=== PATIENT | male | born 1955 | race Caucasian/White ===

== ENCOUNTER 2018-07-17 20:02 | Observation (INO) | payer OTHER ==
--- NOTE | 2018-07-17 20:14 | PDOC ---
Rapid Medical Evaluation Time Seen by Provider: 07/17/18 20:10 Medical Evaluation: 07/17/18 20:11 I have performed a brief in-person evaluation of this patient. The patient presents with a chief complaint of: intermittent chest pain X 1 month, h/o liver tx, sent by PCP to be admitted to Dr. Araiza Pertinent physical exam findings: I have ordered the following:ekg, labs The patient will proceed to the ED for further evaluation. 07/17/18 20:13 Discharge Disposition - Diagnosis Chest pain Qualifiers: Chest pain type: unspecified Qualified Code(s): R07.9 - Chest pain, unspecified - Referrals Referrals: Star Guaman MD [Primary Care Provider] - - Patient Instructions - Post Discharge Activity
[2018-07-17 20:17] VITALS: BMI 29.7
[2018-07-17 22:25] LABS: HEMATOCRIT 39.6 % (35.4-49); HEMOGLOBIN 13.5 GM/dL (11.7-16.9); MCH 30.8 pg (25.7-33.7); MEAN CELL VOLUME 90.4 fl (80-96); MEAN PLT VOLUME 9.7 fl (7.5-11.1); PLATELET COUNT 132 K/MM3 (134-434); RBC 4.38 M/mm3 (4.00-5.60); RDW 13.6 % (11.9-15.9); WHITE BLOOD COUNT 4.8 K/mm3 (4.0-10.0)
--- NOTE | 2018-07-17 22:25 | PDOC ---
History of Present Illness - General History Source: Patient Exam Limitations: No Limitations <Azucena Ledezma - Last Filed: 07/17/18 22:39> <Rossana Johnson - Last Filed: 07/17/18 23:40> - General Chief Complaint: Chest Pain Stated Complaint: CHEST PAIN Time Seen by Provider: 07/17/18 20:10 - History of Present Illness Initial Comments: 07/17/18 22:40 The patient is a 62 year old male, with a significant past medical history of Hep C, liver transplant in 2011 s/p cirrhosis from ETOH abuse, hypertension, who presents to the emergency department sent by Dr. Guaman to further evaluate a one month complaint of intermittent chest pain that radiates to bilateral upper extremities. He states the pain is exacerbated with exertion and while smoking marijuana. He denies alleviating factors for pain. He denies pain at this time. He states he gets blood work every 3 months since his transplant [address] Dixon. He states he gets annual check-ups with his PCP Dr. Guaman. The patient denies shortness of breath, headache and dizziness. The patient denies fever, chills, nausea, vomit, diarrhea and constipation. The patient denies dysuria, frequency, urgency and hematuria. Allergies: NKDA Past surgical history: liver transplant, abdominal hernia repair (2011) Social history: Denies ETOH consumption. Daily marijuana smoker PCP - Dr. Guaman (Azucena Ledezma) Past History <Azucena Ledezma - Last Filed: 07/17/18 22:39> - Past Medical History COPD: No DVT: No HTN: Yes - Immunization History Immunization Up to Date: Yes - Suicide/Smoking/Psychosocial Hx Smoking History: Never smoked Have you smoked in the past 12 months: No Information on smoking cessation initiated: No Hx Alcohol Use: No Drug/Substance Use Hx: No Substance Use Type: Marijuana <Rossana Johnson - Last Filed: 07/17/18 23:40> - Past Medical History Allergies/Adverse Reactions: Allergies Allergy/AdvReac Type Severity Reaction Status Date / Time No Known Allergies Allergy Verified 07/17/18 20:12 Home Medications: Ambulatory Orders NK [No Known Home Medication] 07/17/18 Review of Systems - Review of Systems Able to Perform ROS?: Yes <Azucena Ledezma - Last Filed: 07/17/18 22:39> <AlexDcmaxim Echavarria - Last Filed: 07/17/18 23:40> - Review of Systems Comments:: 07/17/18 22:41 CONSTITUTIONAL: Absent: fever, no chills, no fatigue EYES: Absent: visual changes ENT: Absent: ear pain, no sore throat CARDIOVASCULAR: (+) chest pain radiating to bilateral UE, Absent:no palpitations RESPIRATORY: Absent: cough, no SOB GI: Absent: abdominal pain, no nausea, no vomiting, no constipation, no diarrhea GENITOURINARY: Absent: dysuria, no frequency, no hematuria MUSCULOSKELETAL: Absent: back pain, no arthralgia, no myalgia SKIN: Absent: rash NEURO: Absent: headache (Azucena Ledezma) *Physical Exam <MichellekervinericAzucena - Last Filed: 07/17/18 22:39> <Rossana Johnson - Last Filed: 07/17/18 23:40> - Vital Signs Last Vital Signs Temp Pulse Resp BP Pulse Ox 98.4 F 61 16 132/76 99 07/17/18 20:14 07/17/18 20:14 07/17/18 20:14 07/17/18 20:14 07/17/18 20:14 - Physical Exam Comments: 07/17/18 22:42 GENERAL: Well-appearing, well-nourished. No apparent distress. HEENT: Normocephalic, atraumatic. PERRL, EOM intact. CARDIOVASCULAR: Normal S1, S2. Regular rate and rhythm. PULMONARY: Clear to auscultation bilaterally. ABDOMEN: Soft, non-distended, non-tender. EXTREMITIES: Normal ROM in all four extremities. No gross deformities. SKIN: Warm, dry. No rash NEUROLOGICAL: No focal neurological deficits. (Azucena Ledezma) Heart Score/ECG Review - History History: Moderately suspicious - Electrocardiogram EKG: Non specific repolarization disturbance - Age Age: >/= 65 - Risk Factors Risk Factors Heart Score: Yes Hx Hypercholesterolemia, Yes Hx Hypertension Based on the list above the patient has:: 1-2 risk factors - Troponin Troponin: </= normal limit - Score Heart Score - Total: 5 - P and VT Delta Wave(s) Present: No WPW: No - QRS Widened: RBBB - ECG Impressions Ischemic Changes: No <Rossana Johnson - Last Filed: 07/17/18 23:40> ED Treatment Course - LABORATORY CBC & Chemistry Diagram: 07/17/18 22:00 07/17/18 22:00 <Azucena Ledezma - Last Filed: 07/17/18 22:39> - LABORATORY CBC & Chemistry Diagram: 07/17/18 22:00 07/17/18 22:00 <Rossana Johnson - Last Filed: 07/17/18 23:40> - ADDITIONAL ORDERS Additional order review: Laboratory Results 07/17/18 07/17/18 07/17/18 22:00 22:00 22:00 PT with INR 12.30 INR 1.09 Sodium 141 Potassium 4.2 Chloride 106 Carbon Dioxide 26 Anion Gap 9 BUN 16 Creatinine 1.0 Creat Clearance w eGFR > 60 Random Glucose 106 Calcium 8.8 Total Bilirubin 0.5 AST 22 ALT 21 Alkaline Phosphatase 90 Creatine Kinase 299 Creatine Kinase Index 0.5 CK-MB (CK-2) 1.78 Troponin I < 0.02 Total Protein 7.4 Albumin 4.0 07/17/18 22:00 RBC 4.38 MCV 90.4 MCHC 34.0 RDW 13.6 MPV 9.7 - RADIOLOGY Radiology Studies Ordered: Category Date Time Status CHEST PA & LAT [RAD] Stat Radiology 07/17/18 22:35 Taken *DC/Admit/Observation/Transfer <Azucena Ledezma - Last Filed: 07/17/18 22:39> - Discharge Dispostion Decision to Admit order: Yes <Rossana Johnson - Last Filed: 07/17/18 23:40> Diagnosis at time of Disposition: Liver transplant recipient Chest pain Qualifiers: Chest pain type: unspecified Qualified Code(s): R07.9 - Chest pain, unspecified - Referrals Referrals: Star Guaman MD [Primary Care Provider] - - Patient Instructions - Post Discharge Activity - Attestations Scribe Attestion: 07/17/18 22:42 Documentation prepared by Azucena Ledezma, acting as medical parasitologist for Rossana Johnson MD (Azucena Ledezma)
[2018-07-17 22:26] LABS: INR 1.09 (0.83-1.09); PROTHROMBIN TIME (PATIENT) 12.3 SEC (9.7-13.0)
[2018-07-17 22:42] LABS: ALK PHOS 90 U/L (45-117); ANION GAP 9 MMOL/L (8-16); BILIRUBIN,TOTAL 0.5 mg/dL (0.2-1.0); BLOOD UREA NITROGEN 16 mg/dL (7-18); CALCIUM 8.8 mg/dL (8.5-10.1); CHLORIDE 106 mmol/L (98-107); CO2 26 mmol/L (21-32); GLUCOSE,RANDOM 106 mg/dL (74-106); SGPT/ALT 21 U/L (12-78); SODIUM 141 mmol/L (136-145); TOT PROT 7.4 g/dl (6.4-8.2)
[2018-07-17 22:44] LABS: POTASSIUM 4.2 mmol/L (3.5-5.1); SGOT/AST 22 U/L (15-37)
[2018-07-17] MEDS ORDERED: ASPIRIN 81 MG CHEWABLE TABLETS PO ONE (23:40)
--- NOTE | 2018-07-17 23:49 | HP ---
CHIEF COMPLAINT: Chest Pain PCP: Dr. Guaman HISTORY OF PRESENT ILLNESS: This is a 62 y/o man with a significant past medical history of Hep C, Liver Transplant in 2011 s/p Cirrhosis from ETOH Abuse, Hypertension. Who presents to the ED sent in from his PCP's office for evaluation of intermittent chest pain and dyspnea on exertion x one month. Patient reports the pain is exacerbated on exertion and when smoking Marijuana. He states he gets blood work every 3 months since his transplant [address] Dixon. He states he gets annual check-ups with his PCP Dr. Guaman. The patient denies shortness of breath, headache and dizziness. The patient denies fever, chills, nausea, vomit, diarrhea and constipation. The patient denies dysuria, frequency, urgency and hematuria. ER course was notable for: (1) Troponin I < 0.02 (2) EKG- SB 59bpm, RBBB (3) Recent Travel: None PAST MEDICAL HISTORY: See HPI PAST SURGICAL HISTORY: liver transplant, abdominal hernia repair (2011) Social History: Smoking: Denies Tobacco use Alcohol:Denies ETOH consumption Drugs: Daily marijuana smoker Family History: Allergies No Known Allergies Allergy (Verified 07/17/18 20:12) HOME MEDICATIONS: Home Medications Medication Instructions Recorded NK [No Known Home Medication] 07/17/18 REVIEW OF SYSTEMS CONSTITUTIONAL: Absent: fever, chills, diaphoresis, generalized weakness, malaise, loss of appetite, weight change HEENT: Absent: rhinorrhea, nasal congestion, throat pain, throat swelling, difficulty swallowing, mouth swelling, ear pain, eye pain, visual changes CARDIOVASCULAR: chest pain Absent: syncope, palpitations, irregular heart rate, lightheadedness, peripheral edema RESPIRATORY: Absent: cough, shortness of breath, dyspnea with exertion, orthopnea, wheezing, stridor, hemoptysis GASTROINTESTINAL: Absent: abdominal pain, abdominal distension, nausea, vomiting, diarrhea, constipation, melena, hematochezia GENITOURINARY: Absent: dysuria, frequency, urgency, hesitancy, hematuria, flank pain, genital pain MUSCULOSKELETAL: Absent: myalgia, arthralgia, joint swelling, back pain, neck pain SKIN: Absent: rash, itching, pallor HEMATOLOGIC/IMMUNOLOGIC: Absent: easy bleeding, easy bruising, lymphadenopathy, frequent infections ENDOCRINE: Absent: unexplained weight gain, unexplained weight loss, heat intolerance, cold intolerance NEUROLOGIC: Absent: headache, focal weakness or paresthesias, dizziness, unsteady gait, seizure, mental status changes, bladder or bowel incontinence PSYCHIATRIC: Absent: anxiety, depression, suicidal or homicidal ideation, hallucinations. PHYSICAL EXAMINATION Vital Signs - 24 hr 07/17/18 20:14 Temperature 98.4 F Pulse Rate 61 Respiratory 16 Rate Blood Pressure 132/76 O2 Sat by Pulse 99 Oximetry (%) GENERAL: Awake, alert, and fully oriented, in no acute distress. HEAD: Normal with no signs of trauma. EYES: Pupils equal, round and reactive to light, extraocular movements intact, sclera anicteric, conjunctiva clear. No lid lag. EARS, NOSE, THROAT: Ears normal, nares patent, oropharynx clear without exudates. Moist mucous membranes. NECK: Normal range of motion, supple without lymphadenopathy, JVD, or masses. LUNGS: Breath sounds equal, clear to auscultation bilaterally. No wheezes, and no crackles. No accessory muscle use. HEART: Regular rate and rhythm, normal S1 and S2 without murmur, rub or gallop. CP is non-reproducible ABDOMEN: Soft, nontender, not distended, normoactive bowel sounds, no guarding, no rebound, no masses. No hepatomegaly or splenomegaly. MUSCULOSKELETAL: Normal range of motion at all joints. No bony deformities or tenderness. No CVA tenderness. UPPER EXTREMITIES: 2+ pulses, warm, well-perfused. No cyanosis. No clubbing. No peripheral edema. LOWER EXTREMITIES: 2+ pulses, warm, well-perfused. No calf tenderness. No peripheral edema. NEUROLOGICAL: Cranial nerves II-XII intact. Normal speech. Gait not observed. PSYCHIATRIC: Cooperative. Good eye contact. Appropriate mood and affect. SKIN: Warm, dry, normal turgor, no rashes or lesions noted, normal capillary refill. Laboratory Results - last 24 hr 07/17/18 07/17/18 07/17/18 22:00 22:00 22:00 WBC 4.8 RBC 4.38 Hgb 13.5 Hct 39.6 MCV 90.4 MCH 30.8 MCHC 34.0 RDW 13.6 Plt Count 132 L MPV 9.7 PT with INR 12.30 INR 1.09 Sodium Potassium Chloride Carbon Dioxide Anion Gap BUN Creatinine Creat Clearance w eGFR Random Glucose Calcium Total Bilirubin AST ALT Alkaline Phosphatase Creatine Kinase 299 Creatine Kinase Index 0.5 CK-MB (CK-2) 1.78 Troponin I < 0.02 Total Protein Albumin 07/17/18 22:00 WBC RBC Hgb Hct MCV MCH MCHC RDW Plt Count MPV PT with INR INR Sodium 141 Potassium 4.2 Chloride 106 Carbon Dioxide 26 Anion Gap 9 BUN 16 Creatinine 1.0 Creat Clearance w eGFR > 60 Random Glucose 106 Calcium 8.8 Total Bilirubin 0.5 AST 22 ALT 21 Alkaline Phosphatase 90 Creatine Kinase Creatine Kinase Index CK-MB (CK-2) Troponin I Total Protein 7.4 Albumin 4.0 ASSESSMENT/PLAN: This is a 62 y/o man with a PMHx of Liver Transplant. Placed in Tele Observation for Dyspnea and Chest Pain for further evaluation of their emergent condition. Plan: 1. Cardiology: Chest Pain - HEART Score 5 - Cardiac monitoring - Serial Enzymes - Appreciate Cardiology consult - Lipid Panel, HgbA1c in am - Echo - CBC, BMP in am - Continue Asa 2. Pulm: Dyspnea - Likely secondary to ACS - Chest Xray image reviewed no acute pathology, awaiting official report - O2 - Wells Score 0 3. GI: s/p Liver Transplant - Continue home meds - f/u with Liver specialist as needed 4. FEN - PO fluids as tolerated - Replete lytes prn - Low Na Diet 5. DVT ppx - OOB - SCDs - Consider AC if LOS > 48 hrs Code Status: Full Code Dispo: Observation Problem List - Problem (1) SOB (shortness of breath) Code(s): R06.02 - SHORTNESS OF BREATH (2) Chest pain Code(s): R07.9 - CHEST PAIN, UNSPECIFIED Qualifiers: Chest pain type: unspecified Qualified Code(s): R07.9 - Chest pain, unspecified (3) Liver transplant recipient Code(s): Z94.4 - LIVER TRANSPLANT STATUS Visit type - Emergency Visit Emergency Visit: Yes ED Registration Date: 07/17/18 Care time: The patient presented to the Emergency Department on the above date and was hospitalized for further evaluation of their emergent condition. - New Patient This patient is new to me today: Yes Date on this admission: 07/17/18 - Critical Care Critical Care patient: No Hospitalist Screening - Colonoscopy Questionnaire Colonoscopy Questionnaire: Colonoscopy Questionnaire - Patient: 50 - 75 years old and never had a screening colonoscopy: Unknown History of colon or rectal polyps, or CA: Unknown History of IBD, Crohn's disease or UC: Unknown History of abdominal radiation therapy as a child: Unknown - Relative: 1 with colon or rectal CA, or polyps at age 60 or younger: Unknown Colon or rectal CA diagnosed at age 45 or younger: Unknown Multiple relatives with colon or rectal CA: Unknown - Outcome: Screening Result: Negative Screen
[2018-07-18] MEDS ORDERED: ASPIRIN 81 MG CHEWABLE TABLETS ONE (00:08)
[2018-07-18] MEDS ORDERED: ACETAMINOPHEN 325 MG TABLET (FP) PO ONE (00:15)
[2018-07-18 07:33] LABS: ANION GAP 5 MMOL/L (8-16); BLOOD UREA NITROGEN 14 mg/dL (7-18); CALCIUM 8.8 mg/dL (8.5-10.1); CHLORIDE 106 mmol/L (98-107); CO2 30 mmol/L (21-32); GLUCOSE,RANDOM 92 mg/dL (74-106); MAGNESIUM 1.7 mg/dL (1.8-2.4); PHOSPHOROUS 3.4 mg/dL (2.5-4.9); POTASSIUM 4.3 mmol/L (3.5-5.1); SODIUM 141 mmol/L (136-145)
[2018-07-18 07:48] LABS: BASO % 1.1 % (0-2.0); EOS % 6.2 % (0-4.5); HEMATOCRIT 38.3 % (35.4-49); HEMOGLOBIN 12.9 GM/dL (11.7-16.9); LYMPH % 27.5 % (8-40); MCH 30.3 pg (25.7-33.7); MCHC 33.7 g/dl (32.0-35.9); MEAN PLT VOLUME 9.9 fl (7.5-11.1); MONO % 9.1 % (3.8-10.2); NEUT % 56.1 % (42.8-82.8); PLATELET COUNT 129 K/MM3 (134-434); RBC 4.25 M/mm3 (4.00-5.60); RDW 13.8 % (11.9-15.9)
--- NOTE | 2018-07-18 08:16 | PN ---
Progress Note, Physician - Objective Vital Signs: Vital Signs Temperature 97.6 F 07/18/18 01:30 Pulse Rate 51 L 07/18/18 01:30 Respiratory Rate 18 07/18/18 01:30 Blood Pressure 120/65 07/18/18 01:30 O2 Sat by Pulse Oximetry (%) 98 07/18/18 01:40 Labs: CBC, BMP 07/18/18 05:30 INR, PTT INR 1.09 (0.83-1.09) 07/17/18 22:00 Problem List - Problems (1) Chest pain Assessment/Plan: - Cardiac monitoring - Serial Enzymes - Appreciate Cardiology consult - Lipid Panel, HgbA1c in am - Echo and stress test - CBC, BMP in am - Continue Asa Code(s): R07.9 - CHEST PAIN, UNSPECIFIED Qualifiers: Chest pain type: unspecified Qualified Code(s): R07.9 - Chest pain, unspecified (2) Liver transplant recipient Assessment/Plan: - s/p Liver Transplant - Continue home meds - f/u with Liver specialist as needed Code(s): Z94.4 - LIVER TRANSPLANT STATUS (3) SOB (shortness of breath) Assessment/Plan: - Likely secondary to ACS - Chest Xray image reviewed no acute pathology, awaiting official report - O2 - Wells Score 0 Code(s): R06.02 - SHORTNESS OF BREATH
[2018-07-18] MEDS ORDERED: REGADENOSON 0.4 MG/5 ML PRE-FILLED SYRINGE IVPUSH ONE (09:15)
[2018-07-18] MEDS ORDERED: MAGNESIUM 1GM/D5W 100ML - 100 ML IVPB IVPB ONE (10:15)
--- NOTE | 2018-07-18 12:39 | EKG ---
Test Reason : Blood Pressure : / mmHG Vent. Rate : 059 BPM Atrial Rate : 059 BPM P-R Int : 156 ms QRS Dur : 104 ms QT Int : 422 ms P-R-T Axes : 063 024 042 degrees QTc Int : 417 ms SINUS BRADYCARDIA INCOMPLETE RIGHT BUNDLE BRANCH BLOCK BORDERLINE ECG NO PREVIOUS ECGS AVAILABLE Confirmed by BUNNY GARDUNO, JEAN-PAUL ([id number]) on 07/18/2018 12:39:15 PM Referred By: Confirmed By:JEAN-PAUL HOLLIS MD
[2018-07-18 14:16] LABS: CHOLESTEROL 111 mg/dL (50-200); HDL CHOLESTEROL 34 mg/dL (40-60); TRIGLYCERIDES 131 mg/dL (35-160)
--- NOTE | 2018-07-18 14:53 | CON.CARD ---
Consult Consult Specialty:: Cardiology Referred by:: Dr. Fish Reason for Consultation:: chest pain - History of Present Illness Chief Complaint: chest pain History of Present Illness: 62 year old man with pmh HCV, etoh abuse, cirrhosis s/p liver transplant 2011 C, HTN admitted with reported 1 mo h/o chest pain and sob exacerbated by exertion and smoking marijuana. Of note pt had an outpatient stress echo 01/2018 that showed no ischemia. Pt seen and examined today in [facility], recently came back up from nuclear stress test. States he is feeling well currently. denies chest pain or sob currently. no recent palpitations, pnd, orthopnea, le edema, no lightheadedness, dizziness , syncope, or near syncope. - History Source History Provided By: Patient, Medical Record Limitations to Obtaining History: Language Barrier - Past Medical History Cardio/Vascular: Yes: HTN Gastrointestinal: Yes: Other (cirrhosis liver transplant) - Alcohol/Substance Use Hx Alcohol Use: No - Smoking History Smoking history: Never smoked Have you smoked in the past 12 months: No - Social History ADL: Independent History of Recent Travel: No Home Medications - Allergies Allergies/Adverse Reactions: Allergies Allergy/AdvReac Type Severity Reaction Status Date / Time No Known Allergies Allergy Verified 07/17/18 20:12 - Home Medications Home Medications: Ambulatory Orders Acetaminophen [Tylenol .Extra-Strength -] 500 mg PO PRN 07/18/18 Amlodipine Besylate [Norvasc -] 5 mg PO DAILY 07/18/18 Aspirin [Kvng Chewable Aspirin] 81 mg PO DAILY 07/18/18 Atorvastatin Ca [Lipitor] 10 mg PO DAILY 07/18/18 Donepezil HCl [Aricept] 5 mg PO DAILY 07/18/18 Metoprolol Succinate [Toprol Xl] 12.5 mg PO DAILY 07/18/18 Nitroglycerin 0.4 mg SL PRN PRN 07/18/18 Omeprazole 40 mg PO DAILY 07/18/18 Oxybutynin Chloride [Oxybutynin Chloride ER] 10 mg PO DAILY 07/18/18 Tadalafil [Cialis] 5 mg PO PRN PRN 07/18/18 Tamsulosin HCl [Flomax -] 0.4 mg PO HS 07/18/18 Vit B Complx C/Folic Acid/Zinc 1 tab PO DAILY 07/18/18 Vortioxetine Hydrobromide [Trintellix] 10 mg PO DAILY 07/18/18 Family Disease History - Family Disease History Family History: Denies Review of Systems - Review of Systems Constitutional: denies: No Symptoms, Chills, Diaphoresis, Fever, Lethargy, Loss of Appetite, Malaise, Night Sweats, Unintentional Wgt. Loss, Weakness, Other Eyes: denies: No Symptoms, Blind Spots, Blurred Vision, Double Vision, Eye Pain , Floaters, Photophobia, Recent Change in Vision, Other HENT: denies: No Symptoms, Difficult Swallowing, Ear Discharge, Ear Pain, Epistaxis, Gingival Bleeding, Hearing Loss, Mouth Swelling, Nasal Congestion, Ocular Prosthesis, Throat Pain, Toothache, Ringing in Ears, Other Neck: denies: No Symptoms, Decreased ROM, Lumps, Pain on Movement, Stiffness, Swollen Glands, Tenderness, Other Cardiovascular: reports: Chest Pain, Shortness of Breath. denies: No Symptoms, Edema, Palpitations, Other Respiratory: reports: SOB, SOB on Exertion. denies: No Symptoms, Cough, Exercise Intolerance, Hemoptysis, Orthopnea, PND, Snoring, Wheezing, Other Gastrointestinal: denies: No Symptoms, Abdominal Pain, Bloating, Constipation, Diarrhea, Dysphagia, Indigestion, Melena, Nausea, Rectal Bleeding, Vomiting, Vomiting Blood, Other Genitourinary: denies: No Symptoms, Burning, Discharge, Dysuria, Flank Pain, Frequency, Hematuria, Incontinence, Lesions, Menses, Pain, Testicular Mass, Testicular Pain, Testicular Swelling, Urgency, Vaginal Bleeding, Other Breasts: denies: No Symptoms Reported, See HPI, Breast Implants, Discharge from Nipple, Lumps, Pain, Skin Changes, Other Musculoskeletal: denies: No Symptoms, Back Pain, Crepitus, Decreased ROM, Extremity Pain, Joint Pain, Joint Swelling, Muscle Pain, Muscle Cramps, Muscle Weakness, Other Integumentary: denies: No Symptoms, Blister, Bruising, Change in Color, Eczema, Erythema, Incision, Lesions, Lump, Pallor, Pruritis, Rash, Wound, Other Neurological: denies: No Symptoms, Change in LOC, Change in Speech, Confusion, Dizziness, Headache, Incoordination, Numbness, Parasthesia, Pre-Existing Deficit , Seizure, Syncope, Tremors, Unsteady Gait, Weakness, Other Endocrine: denies: No Symptoms, Excessive Sweating, Flushing, Increased Hunger, Increased Thirst, Intolerance to Cold, Intolerance to Heat, Unexplained Weight Gain, Unexplained Weight Loss, Other Hematology/Lymphatic: denies: No Symptoms, Easily Bruised, Excessive Bleeding, Swollen Glands, Other Psychiatric: denies: No Symptoms, Altered Sleep Pattern, Anxiety, Depression, Hallucinations, Panic, Paranoia, Suicidal, Other - Risk Factors Known Risk Factors: Yes: Hypertension Vital Signs: Vital Signs Temperature 97.8 F 07/18/18 10:00 Pulse Rate 57 L 07/18/18 10:00 Respiratory Rate 07/18/18 10:00 Blood Pressure 108/55 07/18/18 10:00 O2 Sat by Pulse Oximetry (%) 97 07/18/18 09:00 Constitutional: Yes: No Distress, Calm Eyes: Yes: WNL, Conjunctiva Clear, EOM Intact, PERRL HENT: Yes: WNL, Atraumatic, Normocephalic Neck: Yes: WNL, Supple, Trachea Midline Respiratory: Yes: WNL, Regular, CTA Bilaterally. No: Rales, Rhonchi, SOB, Wheezes Gastrointestinal: Yes: WNL, Normal Bowel Sounds, Soft. No: Distention, Tenderness Renal/: Yes: WNL Cardiovascular: Yes: Regular Rate and Rhythm. No: Bradycardia, Tachycardia, Pulse Irregular, Gallop, Rub, Varicosities JVD: No Carotid Bruit: No PMI: Non-Displaced Heart Sounds: Yes: S1, S2. No: Split S2, S3, S4, Clicks, Gallop, Rub, Bruit Murmur: No: Systolic Murmur, Diastolic Murmur Musculoskeletal: Yes: WNL Extremities: Yes: WNL Edema: No Peripheral Pulses WNL: Yes Peripheral Pulses: 2+ Left Doralis Pedis, 2+ Right Dorsalis Pedis Integumentary: Yes: WNL Neurological: Yes: WNL, Alert, Oriented, Cran Nerves II-XII Intact ...Motor Strength: WNL Psychiatric: Yes: WNL, Alert, Oriented - Other Data Labs, Other Data: CBC, BMP 07/18/18 05:30 07/18/18 05:30 INR, PTT INR 1.09 (0.83-1.09) 07/17/18 22:00 Troponin, BNP 09/02/2807/18/18 07/18/18 22:00 03:50 05:30 Troponin I < 0.02 0.02 0.02 Troponin, BNP 07/17/18 07/18/18 07/18/18 22:00 03:50 05:30 Troponin I < 0.02 0.02 0.02 ekg-sinus hilaria 59bpm, incomplete rbbb Echo: Report Reviewed Imaging - Results Chest X-ray: Report Reviewed, Image Reviewed EKG: Report Reviewed, Image Reviewed Other: Report Reviewed, Image Reviewed (tele-nsr, no sig arrhythmias) Assessment/Plan 62 year old man with pmh HCV, etoh abuse, cirrhosis s/p liver transplant 2011 [facility], HTN admitted with reported 1 mo h/o chest pain and sob exacerbated by exertion and smoking marijuana. Of note pt had an outpatient stress echo 01/2018 that showed no ischemia. Pt seen and examined today in [facility], recently came back up from nuclear stress test. States he is feeling well currently. denies chest pain or sob currently. no recent palpitations, pnd, orthopnea, le edema, no lightheadedness, dizziness , syncope, or near syncope. chest pain/sob-atypical, unlikely ACS -no ischemia on ekg -cardiac enzymes wnl x 3 -recent stress echo showed no ischemia -fup nuclear stress test from today if no ischemia pt would be acceptable for discharge from a cardiac standpoint with outpatient fup Bradycardia-sinus, asymptomatic -can stop metoprolol for now (home med) as does not appear to have an indication for it (no cardiac history)
[2018-07-18] MEDS: ATORVASTATIN CA 20 MG TABLET (FP) PO SCH (21:15)
[2018-07-19] MEDS: CYCLOSPORINE MODIFIED 100 MG PO SCH ×2 (00:06→21:07)
[2018-07-19] MEDS ORDERED: ACETAMINOPHEN 325 MG TABLET (FP) PO ONE (00:15)
--- NOTE | 2018-07-19 07:48 | DS ---
Physical Examination Vital Signs: Vital Signs Temperature 98.3 F 07/19/18 01:57 Pulse Rate 60 07/19/18 01:57 Respiratory Rate 20 07/19/18 01:57 Blood Pressure 128/72 07/19/18 01:57 O2 Sat by Pulse Oximetry (%) 97 07/18/18 21:00 Cardiovascular: Yes: S1, S2 Respiratory: Yes: Regular, CTA Bilaterally Gastrointestinal: Yes: Normal Bowel Sounds, Soft Labs: CBC, BMP 07/18/18 05:30 07/18/18 05:30 Discharge Summary Reason For Visit: CHEST PAIN Current Active Problems Chest pain (Acute) Liver transplant recipient (Acute) SOB (shortness of breath) (Acute) Hospital Course: - Problems (1) Chest pain Assessment/Plan: - Cardiac monitoring - Serial Enzymes - Appreciate Cardiology consult - Lipid Panel, HgbA1c in am - Echo and - stress test positive for cath - CBC, BMP in am - Continue Asa Code(s): R07.9 - CHEST PAIN, UNSPECIFIED Qualifiers: Chest pain type: unspecified Qualified Code(s): R07.9 - Chest pain, unspecified (2) Liver transplant recipient Assessment/Plan: - s/p Liver Transplant - Continue home meds - f/u with Liver specialist as needed Code(s): Z94.4 - LIVER TRANSPLANT STATUS (3) SOB (shortness of breath) Assessment/Plan: - Likely secondary to ACS - Chest Xray image reviewed no acute pathology, awaiting official report - O2 Code(s): R06.02 - SHORTNESS OF BREATH Condition: Stable - Instructions Referrals: Star Guaman MD [Primary Care Provider] - - Home Medications Comprehensive Discharge Medication List: Ambulatory Orders Acetaminophen [Tylenol .Extra-Strength -] 500 mg PO PRN 07/18/18 Amlodipine Besylate [Norvasc -] 5 mg PO DAILY 07/18/18 Aspirin [Kvng Chewable Aspirin] 81 mg PO DAILY 07/18/18 Atorvastatin Ca [Lipitor] 10 mg PO DAILY 07/18/18 Cyclosporine, Modified [Gengraf] 75 mg PO DAILY 07/18/18 Cyclosporine, Modified [Gengraf] 100 mg PO HS 07/18/18 Donepezil HCl [Aricept] 5 mg PO DAILY 07/18/18 Metoprolol Succinate [Toprol Xl] 12.5 mg PO DAILY 07/18/18 Nitroglycerin 0.4 mg SL PRN PRN 07/18/18 Omeprazole 40 mg PO DAILY 07/18/18 Oxybutynin Chloride [Oxybutynin Chloride ER] 10 mg PO DAILY 07/18/18 Tadalafil [Cialis] 5 mg PO PRN PRN 07/18/18 Tamsulosin HCl [Flomax -] 0.4 mg PO HS 07/18/18 Vit B Complx C/Folic Acid/Zinc 1 tab PO DAILY 07/18/18 Vortioxetine Hydrobromide [Trintellix] 10 mg PO DAILY 07/18/18
[2018-07-19] MEDS ORDERED: [UNRECOGNIZED DRUG - OTHER] PO SCH (10:00)
[2018-07-19] MEDS ORDERED: CYCLOSPORINE 25 MG PO SCH (10:00)
[2018-07-19] MEDS: [UNRECOGNIZED DRUG - OTHER] PO SCH (10:01)
[2018-07-19] MEDS: ASPIRIN 81 MG CHEWABLE TABLETS PO SCH (15:16)
--- NOTE | 2018-07-19 17:36 | PN ---
Progress Note, Physician History of Present Illness: seen and examined today in [facility]. no overnight events. no new complaints. - Current Medication List Current Medications: Active Medications Aspirin (Asa -) 81 mg PO DAILY [facility] Last Admin: 07/19/18 15:16 Dose: 81 mg Atorvastatin Calcium (Lipitor -) 20 mg PO HS [facility] Last Admin: 07/18/18 21:15 Dose: 20 mg Non-Formulary Medication (Cyclosporine, Modified [Gengraf]) 100 mg PO [facility] Last Admin: 07/19/18 00:06 Dose: 100 mg Non-Formulary Med_Pt Own Med_ Cyclosporine 25mg Modified 3 each PO DAILY [facility] Last Admin: 07/19/18 10:01 Dose: 3 each - Objective Vital Signs: Vital Signs Temperature 98.3 F 07/19/18 14:00 Pulse Rate 68 07/19/18 14:00 Respiratory Rate 18 07/19/18 10:00 Blood Pressure 143/82 07/19/18 14:00 O2 Sat by Pulse Oximetry (%) 97 07/19/18 09:00 Constitutional: Yes: Well Nourished, No Distress, Calm Eyes: Yes: Conjunctiva Clear, EOM Intact HENT: Yes: WNL, Atraumatic, Normocephalic Neck: Yes: WNL, Supple, Trachea Midline Cardiovascular: Yes: WNL, Regular Rate and Rhythm, S1, S2. No: Bradycardia, Tachycardia, Pulse Irregular, Bruit, JVD, Gallop, Murmur, Rub, S3, S4, Varicosities Respiratory: Yes: WNL, Regular, CTA Bilaterally. No: Rales, Rhonchi, Wheezes Gastrointestinal: Yes: WNL, Normal Bowel Sounds, Soft. No: Distention, Tenderness Musculoskeletal: Yes: WNL Extremities: Yes: WNL Edema: No Peripheral Pulses WNL: Yes Peripheral Pulses: Left Doralis Pedis: 2+, Right Dorsalis Pedis: 2+ Integumentary: Yes: WNL Neurological: Yes: WNL, Alert, Oriented, Cran Nerves II-XII Intact ...Motor Strength: WNL Psychiatric: Yes: WNL, Alert, Oriented Labs: CBC, BMP 07/18/18 05:30 07/18/18 05:30 INR, PTT INR 1.09 (0.83-1.09) 07/17/18 22:00 - ....Imaging Chest X-ray: Report Reviewed, Image Reviewed EKG: Report Reviewed, Image Reviewed Other: Report Reviewed, Image Reviewed (tele-nsr, pvcs, apcs) Assessment/Plan 62 year old man with pmh HCV, etoh abuse, cirrhosis s/p liver transplant 2011 [facility], HTN admitted with reported 1 mo h/o chest pain and sob exacerbated by exertion and smoking marijuana. Of note pt had an outpatient stress echo 01/2018 that showed no ischemia. chest pain/sob-atypical, unlikely ACS -no ischemia on ekg -cardiac enzymes wnl x 3 -recent stress echo showed no ischemia -Nuclear stress test showed Inferior ischemia. -Plan is for transfer for cardiac cath to [facility] 07/20/18. Keep npo after midnight for procedure. -cont ASA and statin Bradycardia-sinus, asymptomatic -can stop metoprolol for now (home med) as does not appear to have an indication for it (no cardiac history)
[2018-07-19] MEDS: ATORVASTATIN CA 20 MG TABLET (FP) PO SCH (21:07)
[2018-07-19 21:26] LABS: BASO % 0.6 % (0-2.0); EOS % 0.2 % (0-4.5); HEMATOCRIT 40.7 % (35.4-49); HEMOGLOBIN 14.2 GM/dL (11.7-16.9); LYMPH % 6.3 % (8-40); MCH 31.2 pg (25.7-33.7); MCHC 34.8 g/dl (32.0-35.9); MEAN CELL VOLUME 89.6 fl (80-96); MEAN PLT VOLUME 9.5 fl (7.5-11.1); MONO % 5.2 % (3.8-10.2); NEUT % 87.7 % (42.8-82.8); PLATELET COUNT 161 K/MM3 (134-434); RBC 4.54 M/mm3 (4.00-5.60); RDW 13.6 % (11.9-15.9); WHITE BLOOD COUNT 9.2 K/mm3 (4.0-10.0)
[2018-07-20 00:12] LABS: URINE APPEARANCE CLEAR; URINE BILIRUBIN NEGATIVE (<2.0 mg/dL); URINE COLOR YELLOW; URINE GLUCOSE (UA) NEGATIVE (NEGATIVE); URINE KETONE NEGATIVE (NEGATIVE); URINE LEUK ESTERASE NEGATIVE (NEGATIVE); URINE NITRITE NEGATIVE (NEGATIVE); URINE PROTEIN NEGATIVE (NEGATIVE)
[2018-07-20 06:17] VITALS: TEMP 98.5
[2018-07-20 08:14] VITALS: BP 124/72; PULSE 70
[2018-07-20] MEDS: ASPIRIN 81 MG CHEWABLE TABLETS PO SCH (09:29)
[2018-07-20] MEDS: [UNRECOGNIZED DRUG - OTHER] PO SCH ×2 (09:29→09:30)
--- NOTE | 2018-07-20 09:37 | DS ---
Physical Examination Vital Signs: Vital Signs Temperature 98.5 F 07/20/18 08:12 Pulse Rate 70 07/20/18 08:12 Respiratory Rate 16 07/20/18 08:14 Blood Pressure 124/72 07/20/18 08:12 O2 Sat by Pulse Oximetry (%) 97 07/20/18 08:14 Cardiovascular: Yes: S1, S2 Respiratory: Yes: Regular, CTA Bilaterally Gastrointestinal: Yes: Normal Bowel Sounds, Soft Labs: CBC, BMP 07/19/18 21:10 07/18/18 05:30 Discharge Summary Reason For Visit: CHEST PAIN Current Active Problems Chest pain (Acute) Liver transplant recipient (Acute) SOB (shortness of breath) (Acute) Hospital Course: - Problems (1) Chest pain Assessment/Plan: - Cardiac monitoring - Serial Enzymes - Appreciate Cardiology consult - Lipid Panel, HgbA1c in am - Echo and - stress test positive for cath - CBC, BMP in am - Continue Asa Code(s): R07.9 - CHEST PAIN, UNSPECIFIED Qualifiers: Chest pain type: unspecified Qualified Code(s): R07.9 - Chest pain, unspecified (2) Liver transplant recipient Assessment/Plan: - s/p Liver Transplant - Continue home meds - f/u with Liver specialist as needed Code(s): Z94.4 - LIVER TRANSPLANT STATUS (3) SOB (shortness of breath) Assessment/Plan: - Likely secondary to ACS - Chest Xray image reviewed no acute pathology, awaiting official report - O2 Code(s): R06.02 - SHORTNESS OF BREATH Condition: Stable - Instructions Referrals: Star Guaman MD [Primary Care Provider] - Disposition: TRANSFER ACUTE CARE/OTHER HOSP - Home Medications Comprehensive Discharge Medication List: Ambulatory Orders Acetaminophen [Tylenol .Extra-Strength -] 500 mg PO PRN 07/18/18 Amlodipine Besylate [Norvasc -] 5 mg PO DAILY 07/18/18 Aspirin [Kvng Chewable Aspirin] 81 mg PO DAILY 07/18/18 Atorvastatin Ca [Lipitor] 10 mg PO DAILY 07/18/18 Cyclosporine, Modified [Gengraf] 75 mg PO DAILY 07/18/18 Cyclosporine, Modified [Gengraf] 100 mg PO HS 07/18/18 Donepezil HCl [Aricept] 5 mg PO DAILY 07/18/18 Metoprolol Succinate [Toprol Xl] 12.5 mg PO DAILY 07/18/18 Nitroglycerin 0.4 mg SL PRN PRN 07/18/18 Omeprazole 40 mg PO DAILY 07/18/18 Oxybutynin Chloride [Oxybutynin Chloride ER] 10 mg PO DAILY 07/18/18 Tadalafil [Cialis] 5 mg PO PRN PRN 07/18/18 Tamsulosin HCl [Flomax -] 0.4 mg PO HS 07/18/18 Vit B Complx C/Folic Acid/Zinc 1 tab PO DAILY 07/18/18 Vortioxetine Hydrobromide [Trintellix] 10 mg PO DAILY 07/18/18
== END 2018-07-20 10:11 | disposition short-term general hospital (02) ==
LOC: JER 20:02 → JERBED 23:40 → J4W 07-18 03:12
PROVIDERS: ADMIT Internal Medicine; ATTEND Family Medicine
PROC: 3E033GC Introduction of Other Therapeutic Substance into Peripheral Vein, Percutaneous Approach (ICD-10-PCS; principal; 2018-07-17)
DX: R07.9 Chest pain, unspecified (principal); R06.02 Shortness of breath; R00.1 Bradycardia, unspecified; I10 Essential (primary) hypertension; F10.21 Alcohol dependence, in remission; Z94.4 Liver transplant status; Z87.19 Personal history of other diseases of the digestive system
CPT/HCPCS: 36415; 71045-TC-FY; 71046-TC-FY; 78452-TC; 80048; 80053; 80061; 81003; 82550; 82553; 83605; 83721; 83735; 84100; 84484; 85025; 85027; 85610; 87040; 87086; 93005; 93010; 93017; 96374; 99283-25; A9502; G0378

== ENCOUNTER 2019-06-18 23:36 | Observation (INO) | payer MEDICARE, OTHER ==
[2019-06-19 00:05] VITALS: BMI 30.5
--- NOTE | 2019-06-19 01:19 | PDOC ---
History of Present Illness - General Chief Complaint: Chest Pain Stated Complaint: CHEST PAIN/HEADACHE Time Seen by Provider: 06/19/19 01:19 Past History - Past Medical History Allergies/Adverse Reactions: Allergies Allergy/AdvReac Type Severity Reaction Status Date / Time No Known Allergies Allergy Verified 06/19/19 00:05 Home Medications: Ambulatory Orders Acetaminophen [Tylenol .Extra-Strength -] 500 mg PO PRN 07/18/18 Amlodipine Besylate [Norvasc -] 5 mg PO DAILY 07/18/18 Aspirin [Kvng Chewable Aspirin] 81 mg PO DAILY 07/18/18 Atorvastatin Ca [Lipitor] 10 mg PO DAILY 07/18/18 Cyclosporine, Modified [Gengraf] 75 mg PO DAILY 07/18/18 Cyclosporine, Modified [Gengraf] 100 mg PO HS 07/18/18 Donepezil HCl [Aricept] 5 mg PO DAILY 07/18/18 Metoprolol Succinate [Toprol Xl] 12.5 mg PO DAILY 07/18/18 Nitroglycerin 0.4 mg SL PRN PRN 07/18/18 Omeprazole 40 mg PO DAILY 07/18/18 Oxybutynin Chloride [Oxybutynin Chloride ER] 10 mg PO DAILY 07/18/18 Tadalafil [Cialis] 5 mg PO PRN PRN 07/18/18 Tamsulosin HCl [Flomax -] 0.4 mg PO HS 07/18/18 Vit B Complx C/Folic Acid/Zinc 1 tab PO DAILY 07/18/18 Vortioxetine Hydrobromide [Trintellix] 10 mg PO DAILY 07/18/18 CVA: No COPD: No DVT: No Dementia: No HTN: Yes Hypercholesterolemia: Yes - Surgical History Abdominal Surgery: Yes (HERNIA) - Immunization History Immunization Up to Date: Yes - Suicide/Smoking/Psychosocial Hx Smoking History: Unknown if ever smoked Have you smoked in the past 12 months: No Hx Alcohol Use: No Drug/Substance Use Hx: No Substance Use Type: Marijuana Hx Substance Use Treatment: No *Physical Exam - Vital Signs Last Vital Signs Temp Pulse Resp BP Pulse Ox 97.8 F 58 L 18 117/64 98 06/19/19 00:04 06/19/19 00:04 06/19/19 00:04 06/19/19 00:04 06/19/19 00:04 ED Treatment Course - LABORATORY CBC & Chemistry Diagram: 06/19/19 02:33 06/19/19 02:33 Medical Decision Making - Medical Decision Making 63yo M with PMH of 2-vessel CABG, HTN, HCV, ETOH abuse, Cirrhosis s/p liver transplant in 2011 presenting with chest pain x 1 week. 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 Patient describes the chest pain as a "burning" and tightness" that is located midsternally. Walking will make his pain worse. Does not currently endorse chest pain. Denies nausea or vomiting, but endorses diaphoresis. Patient states this feels similar to when he had chest pain last year which led to the cardiac procedure. Endorsing shortness of breath that he describes as not being able to take a full breath. No hemoptysis, no recent surgical history, no recent immobilization, no hormone use, no history of DVT or PE. No fevers, chills, or abdominal pain. PCP: Dr. Guaman Cardio: Karen Stevenson ROS: Constitutional: no fever, +diaphoresis HEENT: no throat pain, no dysphagia Cardiovascular: +chest pain, no palpitations Respiratory: no cough, +shortness of breath Gastrointestinal: no abdominal pain, no nausea Genitourinary: no dysuria, no hematuria Musculoskeletal: no myalgia, no arthralgia Skin: no rash, no itching Neurologic: no headache, no weakness PE: General: Awake, alert, and fully oriented, in no acute distress Head: No signs of trauma Eyes: EOMI, sclera anicteric ENT: Moist mucus membranes Neck: Normal ROM, supple Lungs: Lungs clear, Normal breath sounds Cardio: Regular rhythm, S1 and S2 present Abdomen: Soft, nontender. No guarding, no rebound, no masses. Surgical scars present. Extremities: Normal range of motion, Distal pulses present, No BLE edema SKIN: Warm, Dry, normal turgor Neurologic: Cranial nerves II through XII grossly intact. Normal speech ED Courses/MDM: DDX including but not limited to ACS, PE, PNA, MSK, anemia, metabolic derangement Cardiac workup 06/19/19 01:19 EKG: rate 54, QTc 428, sinus bradycardia, Incomplete RBBB also present on EKG in 07/2018 CBC WBC 6.0 K/mm3 (4.0-10.0) 06/19/19 02:33 RBC 4.08 M/mm3 (4.00-5.60) 06/19/19 02:33 Hgb 12.9 GM/dL (11.7-16.9) 06/19/19 02:33 Hct 38.0 % (35.4-49) 06/19/19 02:33 MCV 93.1 fl (80-96) 06/19/19 02:33 MCH 31.7 pg (25.7-33.7) 06/19/19 02:33 MCHC 34.0 g/dl (32.0-35.9) 06/19/19 02:33 RDW 13.3 % (11.9-15.9) 06/19/19 02:33 Plt Count 115 K/MM3 (134-434) L D 06/19/19 02:33 MPV 9.6 fl (7.5-11.1) 06/19/19 02:33 Absolute Neuts (auto) 3.8 K/mm3 (1.5-8.0) 06/19/19 02:33 Neutrophils % 64.0 % (42.8-82.8) D 06/19/19 02:33 Lymphocytes % 21.8 % (8-40) D 06/19/19 02:33 Monocytes % 8.6 % (3.8-10.2) 06/19/19 02:33 Eosinophils % 4.7 % (0-4.5) H D 06/19/19 02:33 Basophils % 0.9 % (0-2.0) 06/19/19 02:33 Nucleated RBC % 0 % (0-0) 06/19/19 02:33 No leukocytosis Pending chemistries 06/19/19 02:59 CMP Sodium 138 mmol/L (136-145) 06/19/19 02:33 Potassium 4.5 mmol/L (3.5-5.1) 06/19/19 02:33 Chloride 103 mmol/L (98-107) 06/19/19 02:33 Carbon Dioxide 28 mmol/L (21-32) 06/19/19 02:33 Anion Gap 7 MMOL/L (8-16) L 06/19/19 02:33 BUN 20.4 mg/dL (7-18) H 06/19/19 02:33 Creatinine 1.6 mg/dL (0.55-1.3) H 06/19/19 02:33 Est GFR (CKD-EPI)AfAm 51.99 06/19/19 02:33 Est GFR (CKD-EPI)NonAf 44.86 06/19/19 02:33 Random Glucose 104 mg/dL (74-106) 06/19/19 02:33 Calcium 8.5 mg/dL (8.5-10.1) 06/19/19 02:33 Total Bilirubin 0.6 mg/dL (0.2-1) 06/19/19 02:33 AST 27 U/L (15-37) 06/19/19 02:33 ALT 31 U/L (13-61) 06/19/19 02:33 Alkaline Phosphatase 99 U/L (45-117) 06/19/19 02:33 Creatine Kinase 163 U/L (26-308) 06/19/19 02:33 Creatine Kinase Index 1.1 % (0.0-5.0) 06/19/19 02:33 CK-MB (CK-2) 1.9 ng/mL (0.5-3.6) 06/19/19 02:33 Troponin I < 0.02 ng/ml (0.00-0.05) 06/19/19 02:33 Total Protein 6.8 g/dl (6.4-8.2) 06/19/19 02:33 Albumin 3.8 g/dl (3.4-5.0) 06/19/19 02:33 Tpn undetectable Patient nauseous and retching 4mg Zofran ordered CXR without acute pathology, my impression 06/19/19 03:[address] Faulkner who accepted patient for telemetry observation under Dr. Lou. 06/19/19 04:16 *DC/Admit/Observation/Transfer Diagnosis at time of Disposition: Chest pain Qualifiers: Chest pain type: unspecified Qualified Code(s): R07.9 - Chest pain, unspecified - Discharge Dispostion Condition at time of disposition: Guarded Decision to Admit order: Yes - Referrals Referrals: Star Guaman MD [Primary Care Provider] - - Patient Instructions - Post Discharge Activity
[2019-06-19] MEDS ORDERED: FAMOTIDINE 20 MG/50 ML IVPB 20 MG/50 ML MG IVPB ONE ×3 (02:09→11:01)
[2019-06-19] MEDS ORDERED: ACETAMINOPHEN 1000 MG/100 ML VIAL (NON FORMULARY) IVPB ONE (02:09)
[2019-06-19] MEDS ORDERED: ACETAMINOPHEN INJECTION 100 ML IVPB ONE (02:42)
[2019-06-19 02:44] LABS: BASO % 0.9 % (0-2.0); EOS % 4.7 % (0-4.5); HEMOGLOBIN 12.9 GM/dL (11.7-16.9); LYMPH % 21.8 % (8-40); MCH 31.7 pg (25.7-33.7); MEAN CELL VOLUME 93.1 fl (80-96); MEAN PLT VOLUME 9.6 fl (7.5-11.1); MONO % 8.6 % (3.8-10.2); PLATELET COUNT 115 K/MM3 (134-434); RBC 4.08 M/mm3 (4.00-5.60); RDW 13.3 % (11.9-15.9)
--- NOTE | 2019-06-19 02:47 | PDOC ---
Documentation entered by Junie De La Fuente SCRIBE, acting as scribe for Amber Ruth DO. Amber Ruth DO: This documentation has been prepared by the Leisa cole Brenda, SCRIBE, under my direction and personally reviewed by me in its entirety. I confirm that the documentation accurately reflects all work , treatment, procedures, and medical decision making performed by me. Attending Attestation - Resident Resident Name: Yen WestVanessa - ED Attending Attestation I have performed the following: I have examined & evaluated the patient, The case was reviewed & discussed with the resident, I agree w/resident's findings & plan, Exceptions are as noted - HPI HPI: 06/19/19 02:43 The patient is a 63 year old male, with a significant PMH of Hep C, liver transplant in 2011 s/p cirrhosis from ETOH abuse and hypertension,who presents to the emergency department with chest pain along with nausea. The patient also notes feeling that his breathing is off. He also endorses a headache. The patient denies dizziness. Denies fever, chills, vomiting, diarrhea and constipation. Denies any urinary symptoms. Allergies: NKA Past surgical history: Liver transplant in 2011. Social history:Current smoker. Marijuana use. Hx of ETOH abuse. PCP: Star Guaman I - Physicial Exam PE: 06/19/19 02:21 Agree with resident's exam. - Medical Decision Making 06/19/19 02:45 63-year-old male and of intermittent chest pain increased with exertion EKG shows a sinus bradycardia at 54 bpm with no acute ST elevations Plan for troponin and observation on telemetry
[2019-06-19 02:57] LABS: INR 1.18 (0.83-1.09); PROTHROMBIN TIME (PATIENT) 13.9 SEC (9.7-13.0)
[2019-06-19 03:14] LABS: ALBUMIN 3.8 g/dl (3.4-5.0); BILIRUBIN,TOTAL 0.6 mg/dL (0.2-1); BLOOD UREA NITROGEN 20.4 mg/dL (7-18); CALCIUM 8.5 mg/dL (8.5-10.1); CREATININE 1.6 mg/dL (0.55-1.3); POTASSIUM 4.5 mmol/L (3.5-5.1); TOT PROT 6.8 g/dl (6.4-8.2)
[2019-06-19] MEDS ORDERED: SODIUM CHLORIDE 1,000 ML IV STA (03:29)
[2019-06-19] MEDS ORDERED: ONDANSETRON 4 MG/2 ML VIAL IVPUSH ONE (03:56)
[2019-06-19] MEDS ORDERED: ONDANSETRON 4 MG/2 ML VIAL ONE (03:56)
[2019-06-19] MEDS ORDERED: SODIUM CHLORIDE 1,000 ML IV SCH (05:15)
--- NOTE | 2019-06-19 05:30 | HP ---
CHIEF COMPLAINT: Chest pain/burning PCP: Dr. Fish HISTORY OF PRESENT ILLNESS: 63 y/o M, pmh of CABG s/p ND 1 year ago, HTN, hepC, Liver transplant s/p cirrhosis (2011), presents to the ED c/o of localized, mid-sternal, non- radiating, intermittent, burning, tightening chest pain of 1 week duration, accompanied by headache and lower back burning pain. Pt reports this pain started while walking in the park, and usually occurs with exertion and effort and improves w/ rest. He does not take anything for it. Reports that the symptoms have worsened since onset. Pt reports that the pain was not as severe as the pain he experienced prior to the CABG. He underwent a stress test prior to the CABG and was positive, which led to the surgery. Admits to chest pain, sob, headache. Denies fevers, chills, nausea, vomit, diarrhea, numbness, tingling, changes in vision. ROS is negative. ER course was notable for: (1)Trops done- negative (2)EKG- incomplete RBBB (3)CXR-pending Recent Travel: denies PAST MEDICAL HISTORY: CABG s/p ND 1 year ago, HTN, hepC, Cirrhosis 2/2 to Etoh abuse PAST SURGICAL HISTORY: Liver transplant s/p cirrhosis (2011), hernia repair, CABG Social History: Smoking:former smoker-15 yr hx, quit Alcohol: denies Drugs: smoker- marijuana Family History: Mother- of Cardiovascular disease Allergies IV dyes/contrast HOME MEDICATIONS: Home Medications Medication Instructions Recorded Acetaminophen [Tylenol 500 mg PO PRN 07/18/18 .Extra-Strength -] Amlodipine Besylate [Norvasc -] 5 mg PO DAILY 07/18/18 Aspirin [Kvng Chewable Aspirin] 81 mg PO DAILY 07/18/18 Atorvastatin Ca [Lipitor] 10 mg PO DAILY 07/18/18 Cyclosporine, Modified [Gengraf] 75 mg PO DAILY 07/18/18 Cyclosporine, Modified [Gengraf] 100 mg PO HS 07/18/18 Donepezil HCl [Aricept] 5 mg PO DAILY 07/18/18 Metoprolol Succinate [Toprol Xl] 12.5 mg PO DAILY 07/18/18 Nitroglycerin 0.4 mg SL PRN PRN 07/18/18 Omeprazole 40 mg PO DAILY 07/18/18 Oxybutynin Chloride [Oxybutynin 10 mg PO DAILY 07/18/18 Chloride ER] Tadalafil [Cialis] 5 mg PO PRN PRN 07/18/18 Tamsulosin HCl [Flomax -] 0.4 mg PO HS 07/18/18 Vit B Complx C/Folic Acid/Zinc 1 tab PO DAILY 07/18/18 Vortioxetine Hydrobromide 10 mg PO DAILY 07/18/18 [Trintellix] REVIEW OF SYSTEMS CONSTITUTIONAL: Admits: headaches Absent: fever, chills, diaphoresis, generalized weakness, CARDIOVASCULAR: Admits: chest pain Absent: syncope, lightheadedness, peripheral edema RESPIRATORY: Admits: dyspnea with exertion, Absent: cough, shortness of breath, GASTROINTESTINAL: Absent: abdominal pain, abdominal distension, nausea, vomiting, diarrhea, GENITOURINARY: Admits: hematuria, lower back pain Absent: dysuria, frequency, urgency, hesitancy, genital pain NEUROLOGIC: Admits: headache, Absent: focal weakness or paresthesias, dizziness, unsteady gait, seizure, mental status changes, bladder or bowel incontinence PHYSICAL EXAMINATION Last Vital Signs Temp Pulse Resp BP Pulse Ox 97.8 F 62 18 131/82 97 06/19/19 00:04 06/19/19 06:26 06/19/19 06:26 06/19/19 06:26 06/19/19 06:26 GENERAL: Awake, alert, and fully oriented, in no acute distress. EYES: Pupils equal, round and reactive to light, extraocular movements intact LUNGS: Breath sounds equal, clear to auscultation bilaterally. No wheezes, and no crackles. HEART: Regular rate and rhythm, normal S1 and S2 without murmur, rub or gallop. ABDOMEN: Midline scar, midsternal scar present. Mild RUQ tenderness. Soft, not distended, normoactive bowel sounds, no guarding, no rebound, no masses. No hepatomegaly or splenomegaly. UPPER EXTREMITIES: 2+ pulses, warm, well-perfused. No edema LOWER EXTREMITIES: 2+ pulses, warm, well-perfused. No edema Laboratory Results - last 24 hr CBC, BMP 06/19/19 02:33 06/19/19 02:33 INR, PTT INR 1.18 (0.83-1.09) H 06/19/19 02:33 ASSESSMENT/PLAN: 63 y/o M, pmh of CABG s/p ND 1 year ago, HTN, hepC, Liver transplant s/p cirrhosis (2011), presents to the ED c/o of chest pain of 1 week duration, accompanied by headache and lower back burning pain. #Chest Pain r/o ACS vs GERD Continous Cardiac monitoring Consult Cardiology- possible stress test in the am Keep NPO Trend Trops Continue home meds- Aspirin #DANIA BUN/Cre elevated UA-pending Renal U/S- pending Hematuria present Hold Lasiks CMP ordered-pending #Pancreatitis 2/2 alcohol abuse vs hyperlipidemia RUQ tenderness, lower back pain Lipase ordered-pending Abdominal U/S-pending #GERD Famotidine #HTN Continue home meds- metoprolol monitor BP #Hyperlipidemia continue home meds- Atorvastatin 20mg #DVT ppx Heparin SQ Monitor PT,INR #Liver transplant s/p cirrhosis Hold Cyclosporine for now- pts med list indicated medication was no longer active FEN: NPO Dispo: f/u trops, f/u U/S renal and abd, consult cardiology recommendation, symptomatic management Visit type - Emergency Visit Emergency Visit: Yes ED Registration Date: 06/19/19 Care time: The patient presented to the Emergency Department on the above date and was hospitalized for further evaluation of their emergent condition. - New Patient This patient is new to me today: Yes Date on this admission: 06/23/19 - Critical Care Critical Care patient: No ATTENDING PHYSICIAN STATEMENT I saw and evaluated the patient. I reviewed the resident's note and discussed the case with the resident. I agree with the resident's findings and plan as documented. SUBJECTIVE: OBJECTIVE: ASSESSMENT AND PLAN:
--- NOTE | 2019-06-19 06:01 | PN ---
Teaching Attending Note Name of Resident: Adilson Johnson ATTENDING PHYSICIAN STATEMENT I saw and evaluated the patient. I reviewed the resident's note and discussed the case with the resident. I agree with the resident's findings and plan as documented. SUBJECTIVE: This is a 63 year old man with a history of CAD, CABG, HTN, hyperlipidemia, hepatitis C, alcohol abuse, cirrhosis, liver transplant who comes to the ED complaining of substernal chest burning and tightness for the past week. Pain occurs with exertion and improves with rest. He also reports headache and burning in his lower back that occur at the same time as the chest pain. OBJECTIVE: Vital Signs Period Temp Pulse Resp BP Sys/Leyva Pulse Ox Last 24 Hr 97.8 F 58-58 10-18 117-135/64-79 98-99 HEART: S1S2, RRR LUNGS: Clear ABDOMEN: Soft, non-distended, (+) mild RUQ tenderness, normal BS EXTREMITIES: No edema Laboratory Tests 06/19/19 06/19/19 06/19/19 02:33 02:33 02:33 WBC 6.0 RBC 4.08 Hgb 12.9 Hct 38.0 MCV 93.1 MCH 31.7 MCHC 34.0 RDW 13.3 Plt Count 115 L D MPV 9.6 Absolute Neuts (auto) 3.8 Neutrophils % 64.0 D Lymphocytes % 21.8 D Monocytes % 8.6 Eosinophils % 4.7 H D Basophils % 0.9 Nucleated RBC % 0 PT with INR INR PTT (Actin FS) 36.6 H Sodium Potassium Chloride Carbon Dioxide Anion Gap BUN Creatinine Est GFR (CKD-EPI)AfAm Est GFR (CKD-EPI)NonAf Random Glucose Calcium Total Bilirubin AST ALT Alkaline Phosphatase Creatine Kinase 163 Creatine Kinase Index 1.1 CK-MB (CK-2) 1.9 Troponin I < 0.02 Total Protein Albumin 06/19/19 06/19/19 02:33 02:33 WBC RBC Hgb Hct MCV MCH MCHC RDW Plt Count MPV Absolute Neuts (auto) Neutrophils % Lymphocytes % Monocytes % Eosinophils % Basophils % Nucleated RBC % PT with INR 13.90 H INR 1.18 H PTT (Actin FS) Sodium 138 Potassium 4.5 Chloride 103 Carbon Dioxide 28 Anion Gap 7 L BUN 20.4 H Creatinine 1.6 H Est GFR (CKD-EPI)AfAm 51.99 Est GFR (CKD-EPI)NonAf 44.86 Random Glucose 104 Calcium 8.5 Total Bilirubin 0.6 AST 27 ALT 31 Alkaline Phosphatase 99 Creatine Kinase Creatine Kinase Index CK-MB (CK-2) Troponin I Total Protein 6.8 Albumin 3.8 Home Medications Medication Instructions Recorded Acetaminophen [Tylenol 500 mg PO PRN 07/18/18 .Extra-Strength -] Amlodipine Besylate [Norvasc -] 5 mg PO DAILY 07/18/18 Aspirin [Kvng Chewable Aspirin] 81 mg PO DAILY 07/18/18 Atorvastatin Ca [Lipitor] 10 mg PO DAILY 07/18/18 Cyclosporine, Modified [Gengraf] 75 mg PO DAILY 07/18/18 Cyclosporine, Modified [Gengraf] 100 mg PO HS 07/18/18 Donepezil HCl [Aricept] 5 mg PO DAILY 07/18/18 Metoprolol Succinate [Toprol Xl] 12.5 mg PO DAILY 07/18/18 Nitroglycerin 0.4 mg SL PRN PRN 07/18/18 Omeprazole 40 mg PO DAILY 07/18/18 Oxybutynin Chloride [Oxybutynin 10 mg PO DAILY 07/18/18 Chloride ER] Tadalafil [Cialis] 5 mg PO PRN PRN 07/18/18 Tamsulosin HCl [Flomax -] 0.4 mg PO HS 07/18/18 Vit B Complx C/Folic Acid/Zinc 1 tab PO DAILY 07/18/18 Vortioxetine Hydrobromide 10 mg PO DAILY 07/18/18 [Trintellix] ASSESSMENT AND PLAN: This is a 63 year old man with a history of CAD, CABG (07/2018), HTN, hyperlipidemia, hepatitis C, alcohol abuse, cirrhosis, liver transplant who presented to the ED with substernal chest burning and tightness with exertion x 1 week. 1. Chest pain, RUQ tenderness - Monitor on telemetry - Serial troponins - Continue aspirin, Toprol XL, Lipitor - Cardiology consult - Continue Prilosec - RUQ US 2. Possible DANIA - Creatinine 1.6 - most recent available creatinine is 1.0 (07/2018) - Renal US - Obtain recent labs 3. CAD, history of CABG - Continue aspirin, Toprol XL, Lipitor 4. HTN - Continue Norvasc, Toprol XL 5. Hyperlipidemia - Continue Lipitor 6. Cirrhosis secondary to alcohol abuse, hepatitis C - History of liver transplant - continue cyclosporine
[2019-06-19] MEDS ORDERED: HEPARIN NA (PORCINE) 5,000 UNITS/ML 1ML VIAL ONE (06:04)
[2019-06-19] MEDS: HEPARIN NA (PORCINE) 5,000 UNITS/ML 1ML VIAL SQ SCH ×3 (06:30→23:03)
[2019-06-19] MEDS: ASPIRIN 81 MG CHEWABLE TABLETS PO SCH (10:45)
[2019-06-19] MEDS: metoPROLOL SUCCINATE 25 MG TAB.SR.24H (FP) PO SCH (10:45)
[2019-06-19] MEDS: FERROUS SO4 325 MG TABLET (FP) PO SCH (10:46)
[2019-06-19] MEDS: OXYBUTYNIN CHLORIDE 5 MG TABLET PO SCH (10:46)
[2019-06-19] MEDS: DONEPEZIL HCL 5 MG TABLET (FP) PO SCH (10:50)
[2019-06-19] MEDS: VITAMIN B COMP W-C 1 EA TABLET PO SCH (10:51)
[2019-06-19] MEDS: FAMOTIDINE 20 MG/50 ML IVPB 20 MG/50 ML MG IVPB SCH ×2 (10:58→23:03)
[2019-06-19 11:31] LABS: BASO % 0.7 % (0-2.0); EOS % 4.3 % (0-4.5); HEMATOCRIT 38.5 % (35.4-49); LYMPH % 19.8 % (8-40); MCH 31.4 pg (25.7-33.7); MCHC 33.7 g/dl (32.0-35.9); MEAN CELL VOLUME 93.2 fl (80-96); MEAN PLT VOLUME 9.3 fl (7.5-11.1); MONO % 6.9 % (3.8-10.2); NEUT % 68.3 % (42.8-82.8); PLATELET COUNT 103 K/MM3 (134-434); RBC 4.13 M/mm3 (4.00-5.60); RDW 13.4 % (11.9-15.9); WHITE BLOOD COUNT 4.1 K/mm3 (4.0-10.0)
[2019-06-19 12:10] LABS: ALBUMIN 3.6 g/dl (3.4-5.0); ALK PHOS 98 U/L (45-117); ANION GAP 5 MMOL/L (8-16); BILIRUBIN,TOTAL 0.7 mg/dL (0.2-1); BLOOD UREA NITROGEN 18.2 mg/dL (7-18); CALCIUM 8.7 mg/dL (8.5-10.1); CHLORIDE 110 mmol/L (98-107); CO2 27 mmol/L (21-32); CREATININE 1.2 mg/dL (0.55-1.3); GLUCOSE,RANDOM 105 mg/dL (74-106); LIPASE 64 U/L (73-393); POTASSIUM 4.7 mmol/L (3.5-5.1); SGOT/AST 20 U/L (15-37); SGPT/ALT 27 U/L (13-61); SODIUM 142 mmol/L (136-145); TOT PROT 6.4 g/dl (6.4-8.2)
--- NOTE | 2019-06-19 13:36 | EKG ---
Test Reason : Blood Pressure : / mmHG Vent. Rate : 054 BPM Atrial Rate : 054 BPM P-R Int : 146 ms QRS Dur : 098 ms QT Int : 452 ms P-R-T Axes : 070 021 034 degrees QTc Int : 428 ms SINUS BRADYCARDIA INCOMPLETE RIGHT BUNDLE BRANCH BLOCK BORDERLINE ECG WHEN COMPARED WITH ECG OF 17-JUL-2018 20:04, NONSPECIFIC T WAVE ABNORMALITY NOW EVIDENT IN INFERIOR LEADS Confirmed by UBALDO GARDUNO, KIKE ([id number]) on 06/19/2019 1:35:51 PM Referred By: Confirmed By:KIKE CONNER MD
--- NOTE | 2019-06-19 13:54 | CON.CARD ---
Consult Consult Specialty:: cardiology Referred by:: Abe Reason for Consultation:: Chest pain - History of Present Illness Chief Complaint: Chest pain History of Present Illness: The patient is a 63-year-old man, we have a history of hypertension, hyperlipidemia, hepatitis C and alcoholism, liver cirrhosis, status post liver transplant 2011, coronary artery disease, status post CABG 08/06/2018 (GONZALEZ to the LAD, SVG to OM), now presenting with exertional chest pains. The patient stated that approximately 2 days ago he began experiencing retrosternal chest burning while walking. Symptoms are significantly limiting his physical activity and exercise tolerance. Denies resting symptoms. He is currently comfortable and symptom free. - History Source History Provided By: Patient Limitations to Obtaining History: No Limitations - Past Medical History Cardio/Vascular: Yes: CAD (status post liver transplant), HTN Gastrointestinal: Yes: Other (cirrhosis liver transplant) Hepatobiliary: Yes: Hepatitis C - Alcohol/Substance Use Hx Alcohol Use: No - Smoking History Smoking history: Unknown if ever smoked Have you smoked in the past 12 months: No - Social History ADL: Independent History of Recent Travel: No Home Medications - Allergies Allergies/Adverse Reactions: Allergies Allergy/AdvReac Type Severity Reaction Status Date / Time IV contrast Allergy Itching Uncoded 06/19/19 06:55 - Home Medications Home Medications: Ambulatory Orders Aspirin [Kvng Chewable Aspirin] 81 mg PO DAILY 07/18/18 Atorvastatin Ca [Lipitor] 20 mg PO DAILY 07/18/18 Cyclosporine, Modified [Gengraf] 25 mg PO DAILY 07/18/18 Cyclosporine, Modified [Gengraf] 100 mg PO HS 07/18/18 Donepezil HCl [Aricept] 5 mg PO DAILY 07/18/18 Metoprolol Succinate [Toprol Xl] 25 mg PO DAILY 07/18/18 Oxybutynin Chloride [Oxybutynin Chloride ER] 10 mg PO DAILY 07/18/18 Tamsulosin HCl [Flomax -] 0.4 mg PO HS 07/18/18 Vit B Complx C/Folic Acid/Zinc 1 tab PO DAILY 07/18/18 Dexlansoprazole [Dexilant] 60 mg PO AM 06/19/19 Docusate Sodium [Colace] 100 mg PO TID 06/19/19 Ferrous Sulfate 325 mg PO DAILY 06/19/19 Linaclotide [Linzess] 72 mg PO DAILY PRN 06/19/19 Pitavastatin Calcium [Livalo] 4 mg PO DAILY 06/19/19 Review of Systems - Review of Systems Constitutional: reports: No Symptoms Eyes: reports: No Symptoms HENT: reports: No Symptoms Neck: reports: No Symptoms Cardiovascular: reports: Chest Pain Respiratory: reports: No Symptoms Gastrointestinal: reports: No Symptoms Genitourinary: reports: No Symptoms Breasts: reports: No Symptoms Reported Musculoskeletal: reports: Back Pain Integumentary: reports: No Symptoms Neurological: reports: No Symptoms Endocrine: reports: No Symptoms Hematology/Lymphatic: reports: No Symptoms Psychiatric: reports: No Symptoms Vital Signs: Vital Signs Temperature 98.5 F 06/19/19 10:38 Pulse Rate 53 L 06/19/19 10:38 Respiratory Rate 17 06/19/19 10:38 Blood Pressure 138/88 06/19/19 10:38 O2 Sat by Pulse Oximetry (%) 98 06/19/19 10:38 Constitutional: Yes: Well Nourished, No Distress, Calm Eyes: Yes: WNL, Conjunctiva Clear, EOM Intact HENT: Yes: WNL, Atraumatic, Normocephalic Neck: Yes: WNL, Supple, Trachea Midline Respiratory: Yes: WNL, Regular, CTA Bilaterally Gastrointestinal: Yes: WNL, Normal Bowel Sounds, Soft Renal/: Yes: WNL Cardiovascular: Yes: WNL, Regular Rate and Rhythm JVD: No Carotid Bruit: No PMI: Non-Displaced Heart Sounds: Yes: S1, S2 Murmur: Yes: Systolic Murmur, Grade 2 Musculoskeletal: Yes: Back Pain Extremities: Yes: WNL Edema: No Peripheral Pulses WNL: Yes Peripheral Pulses: 2+ Left Carotid, 2+ Right Carotid, 2+ Left Femoral, 2+ Right Femoral, 2+ Left Popliteal, 2+ Right Popliteal, 2+ Left Doralis Pedis, 2+ Right Dorsalis Pedis Integumentary: Yes: WNL Neurological: Yes: WNL, Alert, Oriented ...Motor Strength: WNL Psychiatric: Yes: WNL - Other Data Labs, Other Data: CBC, BMP 06/19/19 11:19 06/19/19 11:19 INR, PTT INR 1.18 (0.83-1.09) H 06/19/19 02:33 Troponin, BNP 06/19/19 06/19/19 02:33 11:19 Troponin I < 0.02 < 0.02 Troponin, BNP 06/19/19 06/19/19 02:33 11:19 Troponin I < 0.02 < 0.02 Assessment/Plan The patient is a 63-year-old man, we have a history of hypertension, hyperlipidemia, hepatitis C and alcoholism, liver cirrhosis, status post liver transplant 2011, coronary artery disease, status post CABG 08/06/2018 (GONZALEZ to the LAD, SVG to OM), now presenting with exertional chest pains. The patient stated that approximately 2 days ago he began experiencing retrosternal chest burning while walking. Symptoms are significantly limiting his physical activity and exercise tolerance. Denies resting symptoms. He is currently comfortable and symptom free. The patient is in sinus rhythm. There are no acute ECG changes. Please admit to it monitored floor. Start Imdur 30 mg daily. No need for heparin nor Plavix. Please arrange for a pharmacological nuclear stress test. The patient is stable. I will follow.
--- NOTE | 2019-06-19 17:03 | PN ---
Progress Note, Physician Chief Complaint: Chest Pain Hepatitis C RUQ pain History of Present Illness: Previous notes and events reviewed awake and alert NAD complain of mid chest pain, non-radiating, burning sensation complain of lower back pain - Current Medication List Current Medications: Active Medications Acetaminophen (Tylenol -) 650 mg PO Q4H PRN PRN Reason: FOR CHEST PAIN Aspirin (Asa -) 81 mg PO DAILY [facility] Last Admin: 06/19/19 10:45 Dose: 81 mg Atorvastatin Calcium (Lipitor -) 20 mg PO [facility] Donepezil HCl (Aricept -) 5 mg PO DAILY [facility] Last Admin: 06/19/19 10:50 Dose: 5 mg Ferrous Sulfate (Feosol -) 325 mg PO DAILY [facility] Last Admin: 06/19/19 10:46 Dose: 325 mg Heparin Sodium (Porcine) (Heparin -) 5,000 unit SQ TID [facility] Last Admin: 06/19/19 15:41 Dose: 5,000 unit Famotidine/Sodium Chloride (Pepcid 20 Mg Premixed Ivpb -) 20 mg in 50 mls @ 100 mls/hr IVPB BID [facility] Last Admin: 06/19/19 10:58 Dose: 100 mls/hr Metoprolol Succinate (Toprol Xl -) 25 mg PO DAILY [facility] Last Admin: 06/19/19 10:45 Dose: 25 mg Multivit/Ca Carb/B Cmplx/FA/Prenat (Nephro-Jeri -) 1 tablet PO DAILY [facility] Last Admin: 06/19/19 10:51 Dose: 1 tablet Oxybutynin Chloride (Ditropan -) 10 mg PO DAILY [facility] Last Admin: 06/19/19 10:46 Dose: 10 mg Tamsulosin HCl (Flomax -) 0.4 mg PO [facility] - Objective Vital Signs: Vital Signs Temperature 98.5 F 06/19/19 10:38 Pulse Rate 53 L 06/19/19 10:38 Respiratory Rate 17 06/19/19 10:38 Blood Pressure 138/88 06/19/19 10:38 O2 Sat by Pulse Oximetry (%) 98 06/19/19 10:38 Constitutional: Yes: No Distress, Calm Eyes: Yes: Conjunctiva Clear HENT: Yes: Atraumatic Cardiovascular: Yes: Regular Rate and Rhythm Respiratory: Yes: Regular, CTA Bilaterally Gastrointestinal: Yes: Normal Bowel Sounds, Soft Musculoskeletal: Yes: Other (lower back pain) Extremities: Yes: WNL Edema: No Neurological: Yes: Alert, Oriented Psychiatric: Yes: Alert, Oriented Labs: CBC, BMP 06/19/19 11:19 06/19/19 11:19 INR, PTT INR 1.18 (0.83-1.09) H 06/19/19 02:33 Troponin, BNP 06/19/19 06/19/19 02:33 11:19 Troponin I < 0.02 < 0.02 - ....Imaging Ultrasound: Report Reviewed Problem List - Problems (1) Chest pain Assessment/Plan: -Tele monitoring -Cardiology on board -Trop neg x 2 -Nuclear Stress test -Aspirin Code(s): R07.9 - CHEST PAIN, UNSPECIFIED Qualifiers: Chest pain type: unspecified Qualified Code(s): R07.9 - Chest pain, unspecified (2) Liver transplant recipient Assessment/Plan: -LFTs nl Code(s): Z94.4 - LIVER TRANSPLANT STATUS (3) DANIA (acute kidney injury) Assessment/Plan: -BUN/Cr 18.2/1.2 -monitor renal function -Renal US shows unremarkeable Code(s): N17.9 - ACUTE KIDNEY FAILURE, UNSPECIFIED (4) RUQ pain Assessment/Plan: -Abdominal US minimal hepatomegaly with mild fatty infiltration of liver, s/p cholecystectomy -GI consult -lipase 64 Code(s): R10.11 - RIGHT UPPER QUADRANT PAIN Assessment/Plan see problem list dvt ppx
[2019-06-19] MEDS ORDERED: ATORVASTATIN CA 20 MG TABLET (FP) PO SCH (22:00)
[2019-06-19] MEDS: TAMSULOSIN HCL 0.4 MG CAP PO SCH (23:02)
[2019-06-19] MEDS: ATORVASTATIN CA 20 MG TABLET (FP) PO SCH (23:02)
[2019-06-19] MEDS: LIDOCAINE PATCH REMOVAL MC SCH (23:08)
[2019-06-20] MEDS: HEPARIN NA (PORCINE) 5,000 UNITS/ML 1ML VIAL SQ SCH ×3 (06:09→21:12)
[2019-06-20] MEDS ORDERED: PT OWN MED DRAWER 7, Y5N ONE (09:19)
[2019-06-20] MEDS: FERROUS SO4 325 MG TABLET (FP) PO SCH (10:25)
[2019-06-20] MEDS: DONEPEZIL HCL 5 MG TABLET (FP) PO SCH (10:25)
[2019-06-20] MEDS: OXYBUTYNIN CHLORIDE 5 MG TABLET PO SCH (10:25)
[2019-06-20] MEDS: ASPIRIN 81 MG CHEWABLE TABLETS PO SCH (10:25)
[2019-06-20] MEDS: VITAMIN B COMP W-C 1 EA TABLET PO SCH (10:25)
[2019-06-20] MEDS: LIDOCAINE 5% TOPICAL PATCH TP SCH (10:26)
[2019-06-20] MEDS: FAMOTIDINE 20 MG/50 ML IVPB 20 MG/50 ML MG IVPB SCH ×2 (10:29→21:11)
[2019-06-20] MEDS ORDERED: REGADENOSON 0.4 MG/5 ML PRE-FILLED SYRINGE IVPUSH ONE ×2 (11:51→12:30)
--- NOTE | 2019-06-20 11:56 | PN ---
Progress Note, Physician Chief Complaint: patient seen and examined complaining of left sided intermittent chest pain to go for stress test tday - Current Medication List Current Medications: Active Medications Acetaminophen (Tylenol -) 650 mg PO Q4H PRN PRN Reason: FOR CHEST PAIN Aspirin (Asa -) 81 mg PO DAILY [facility] Last Admin: 06/20/19 10:25 Dose: 81 mg Atorvastatin Calcium (Lipitor -) 20 mg PO HS [facility] Last Admin: 06/19/19 23:02 Dose: 20 mg Donepezil HCl (Aricept -) 5 mg PO DAILY [facility] Last Admin: 06/20/19 10:25 Dose: 5 mg Ferrous Sulfate (Feosol -) 325 mg PO DAILY [facility] Last Admin: 06/20/19 10:25 Dose: 325 mg Heparin Sodium (Porcine) (Heparin -) 5,000 unit SQ TID [facility] Last Admin: 06/20/19 06:09 Dose: 5,000 unit Famotidine/Sodium Chloride (Pepcid 20 Mg Premixed Ivpb -) 20 mg in 50 mls @ 100 mls/hr IVPB BID [facility] Last Admin: 06/19/19 23:03 Dose: 100 mls/hr Lidocaine (Lidoderm Patch -) 1 patch TP DAILY [facility] Last Admin: 06/20/19 10:26 Dose: 1 patch Metoprolol Succinate (Toprol Xl -) 25 mg PO DAILY [facility] Last Admin: 06/19/19 10:45 Dose: 25 mg Miscellaneous (Lidoderm Patch Removal) 1 each MC DAILY@2200 [facility] Last Admin: 06/19/19 23:08 Dose: Not Given Multivit/Ca Carb/B Cmplx/FA/Prenat (Nephro-Jeri -) 1 tablet PO DAILY [facility] Last Admin: 06/20/19 10:25 Dose: 1 tablet Oxybutynin Chloride (Ditropan -) 10 mg PO DAILY [facility] Last Admin: 06/20/19 10:25 Dose: 10 mg Tamsulosin HCl (Flomax -) 0.4 mg PO HS [facility] Last Admin: 06/19/19 23:02 Dose: 0.4 mg - Objective Vital Signs: Vital Signs Temperature 97.3 F L 06/20/19 10:00 Pulse Rate 55 L 06/20/19 10:00 Respiratory Rate 20 06/20/19 11:00 Blood Pressure 132/68 06/20/19 10:00 O2 Sat by Pulse Oximetry (%) 99 06/20/19 11:00 Constitutional: Yes: Calm Cardiovascular: Yes: Regular Rate and Rhythm, S1, S2 Respiratory: Yes: CTA Bilaterally Gastrointestinal: Yes: Normal Bowel Sounds, Soft Edema: No Neurological: Yes: Alert, Oriented Labs: CBC, BMP 06/19/19 11:19 06/19/19 11:19 INR, PTT INR 1.18 (0.83-1.09) H 06/19/19 02:33 Problem List - Problems (1) Chest pain Assessment/Plan: telemetry stress test Code(s): R07.9 - CHEST PAIN, UNSPECIFIED Qualifiers: Chest pain type: unspecified Qualified Code(s): R07.9 - Chest pain, unspecified (2) HLD (hyperlipidemia) Assessment/Plan: atrovastatin Code(s): E78.5 - HYPERLIPIDEMIA, UNSPECIFIED (3) DANIA (acute kidney injury) Assessment/Plan: improved with IV fluids Code(s): N17.9 - ACUTE KIDNEY FAILURE, UNSPECIFIED
[2019-06-20] MEDS: metoPROLOL SUCCINATE 25 MG TAB.SR.24H (FP) PO SCH (14:29)
--- NOTE | 2019-06-20 15:04 | PN ---
Progress Note, Physician Chief Complaint: Chest pain History of Present Illness: The patient is a 63-year-old man, we have a history of hypertension, hyperlipidemia, hepatitis C and alcoholism, liver cirrhosis, status post liver transplant 2011, coronary artery disease, status post CABG 08/06/2018 (GONZALEZ to the LAD, SVG to OM), now presenting with exertional chest pains. The patient stated that approximately 2 days ago he began experiencing retrosternal chest burning while walking. Symptoms are significantly limiting his physical activity and exercise tolerance. Denies resting symptoms. He is currently comfortable and symptom free. - Current Medication List Current Medications: Active Medications Acetaminophen (Tylenol -) 650 mg PO Q4H PRN PRN Reason: FOR CHEST PAIN Aspirin (Asa -) 81 mg PO DAILY [facility] Last Admin: 06/20/19 10:25 Dose: 81 mg Atorvastatin Calcium (Lipitor -) 20 mg PO HS [facility] Last Admin: 06/19/19 23:02 Dose: 20 mg Donepezil HCl (Aricept -) 5 mg PO DAILY [facility] Last Admin: 06/20/19 10:25 Dose: 5 mg Ferrous Sulfate (Feosol -) 325 mg PO DAILY [facility] Last Admin: 06/20/19 10:25 Dose: 325 mg Heparin Sodium (Porcine) (Heparin -) 5,000 unit SQ TID [facility] Last Admin: 06/20/19 14:29 Dose: 5,000 unit Famotidine/Sodium Chloride (Pepcid 20 Mg Premixed Ivpb -) 20 mg in 50 mls @ 100 mls/hr IVPB BID [facility] Last Admin: 06/20/19 10:29 Dose: 100 mls/hr Lidocaine (Lidoderm Patch -) 1 patch TP DAILY [facility] Last Admin: 06/20/19 10:26 Dose: 1 patch Metoprolol Succinate (Toprol Xl -) 25 mg PO DAILY [facility] Last Admin: 06/20/19 14:29 Dose: 25 mg Miscellaneous (Lidoderm Patch Removal) 1 each MC DAILY@2200 [facility] Last Admin: 06/19/19 23:08 Dose: Not Given Multivit/Ca Carb/B Cmplx/FA/Prenat (Nephro-Jeri -) 1 tablet PO DAILY [facility] Last Admin: 06/20/19 10:25 Dose: 1 tablet Oxybutynin Chloride (Ditropan -) 10 mg PO DAILY [facility] Last Admin: 06/20/19 10:25 Dose: 10 mg Tamsulosin HCl (Flomax -) 0.4 mg PO HS [facility] Last Admin: 06/19/19 23:02 Dose: 0.4 mg - Objective Vital Signs: Vital Signs Temperature 97.3 F L 06/20/19 10:00 Pulse Rate 55 L 06/20/19 10:00 Respiratory Rate 20 06/20/19 11:00 Blood Pressure 132/68 06/20/19 10:00 O2 Sat by Pulse Oximetry (%) 99 06/20/19 11:00 Constitutional: Yes: Well Nourished, No Distress, Calm Eyes: Yes: WNL, Conjunctiva Clear, EOM Intact HENT: Yes: WNL, Atraumatic, Normocephalic Neck: Yes: WNL, Supple, Trachea Midline Cardiovascular: Yes: WNL, Regular Rate and Rhythm, Bradycardia, S1, S2 Respiratory: Yes: WNL, Regular, CTA Bilaterally Gastrointestinal: Yes: WNL, Normal Bowel Sounds, Soft ...Rectal Exam: Yes: Deferred Genitourinary: Yes: WNL Musculoskeletal: Yes: WNL Extremities: Yes: WNL Edema: No Peripheral Pulses: Left Radial: 2+, Right Radial: 2+, Left Doralis Pedis: 2+, Right Dorsalis Pedis: 2+, Left Femoral: 2+, Right Femoral: 2+ Integumentary: Yes: WNL Neurological: Yes: WNL, Alert, Oriented ...Motor Strength: WNL Labs: CBC, BMP 06/19/19 11:19 06/19/19 11:19 INR, PTT INR 1.18 (0.83-1.09) H 06/19/19 02:33 Assessment/Plan The patient is a 63-year-old man, we have a history of hypertension, hyperlipidemia, hepatitis C and alcoholism, liver cirrhosis, status post liver transplant 2011, coronary artery disease, status post CABG 08/06/2018 (GONZALEZ to the LAD, SVG to OM), now presenting with exertional chest pains. The patient stated that approximately 2 days ago he began experiencing retrosternal chest burning while walking. Symptoms are significantly limiting his physical activity and exercise tolerance. Denies resting symptoms. He is currently comfortable and symptom free. Nuclear stress test revealed mild ischemia of the mid to basal inferior wall. No need to pursue cardiac catheterization in this setting. The patient is bradycardic. Please start Imdur 30 mg daily. May increase as needed for symptoms. Continue the other medications as currently. May stop telemetry. No need for further cardiac workup at this point. Please arrange for an outpatient follow-up visit with next week. Please do not hesitate to call us PRN
[2019-06-20] MEDS: ACETAMINOPHEN 325 MG TABLET (FP) PO PRN (21:11)
[2019-06-20] MEDS: TAMSULOSIN HCL 0.4 MG CAP PO SCH (21:12)
[2019-06-20] MEDS: LIDOCAINE PATCH REMOVAL MC SCH (21:13)
[2019-06-20] MEDS: ATORVASTATIN CA 20 MG TABLET (FP) PO SCH (21:13)
[2019-06-21] MEDS: HEPARIN NA (PORCINE) 5,000 UNITS/ML 1ML VIAL SQ SCH ×3 (05:12→21:33)
[2019-06-21 07:18] LABS: ALBUMIN 3.6 g/dl (3.4-5.0); BILIRUBIN,TOTAL 0.8 mg/dL (0.2-1); BLOOD UREA NITROGEN 12.5 mg/dL (7-18); CALCIUM 8.9 mg/dL (8.5-10.1); CREATININE 1.2 mg/dL (0.55-1.3); POTASSIUM 4.1 mmol/L (3.5-5.1); TOT PROT 6.5 g/dl (6.4-8.2)
[2019-06-21] MEDS ORDERED: PT OWN MED DRAWER 7, Y5N ONE ×4 (08:02→21:12)
--- NOTE | 2019-06-21 09:11 | PN ---
Progress Note, Physician History of Present Illness: 63-year-old man, we have a history of hypertension, hyperlipidemia, hepatitis C and alcoholism, liver cirrhosis, status post liver transplant 2011, coronary artery disease, status post CABG 08/06/2018 (GONZALEZ to the LAD, SVG to OM), now presenting with exertional chest pains. still with recurrent chest pain - Current Medication List Current Medications: Active Medications Acetaminophen (Tylenol -) 650 mg PO Q4H PRN PRN Reason: FOR CHEST PAIN Last Admin: 06/20/19 21:11 Dose: 650 mg Aspirin (Asa -) 81 mg PO DAILY [facility] Last Admin: 06/20/19 10:25 Dose: 81 mg Atorvastatin Calcium (Lipitor -) 20 mg PO HS [facility] Last Admin: 06/20/19 21:13 Dose: 20 mg Donepezil HCl (Aricept -) 5 mg PO DAILY [facility] Last Admin: 06/20/19 10:25 Dose: 5 mg Ferrous Sulfate (Feosol -) 325 mg PO DAILY [facility] Last Admin: 06/20/19 10:25 Dose: 325 mg Heparin Sodium (Porcine) (Heparin -) 5,000 unit SQ TID [facility] Last Admin: 06/21/19 05:12 Dose: 5,000 unit Famotidine/Sodium Chloride (Pepcid 20 Mg Premixed Ivpb -) 20 mg in 50 mls @ 100 mls/hr IVPB BID [facility] Last Admin: 06/20/19 21:11 Dose: 100 mls/hr Lidocaine (Lidoderm Patch -) 1 patch TP DAILY [facility] Last Admin: 06/20/19 10:26 Dose: 1 patch Metoprolol Succinate (Toprol Xl -) 25 mg PO DAILY [facility] Last Admin: 06/20/19 14:29 Dose: 25 mg Miscellaneous (Lidoderm Patch Removal) 1 each MC DAILY@2200 [facility] Last Admin: 06/20/19 21:13 Dose: 1 each Multivit/Ca Carb/B Cmplx/FA/Prenat (Nephro-Jeri -) 1 tablet PO DAILY [facility] Last Admin: 06/20/19 10:25 Dose: 1 tablet Oxybutynin Chloride (Ditropan -) 10 mg PO DAILY [facility] Last Admin: 06/20/19 10:25 Dose: 10 mg Tamsulosin HCl (Flomax -) 0.4 mg PO HS [facility] Last Admin: 06/20/19 21:12 Dose: 0.4 mg - Objective Vital Signs: Vital Signs Temperature 98.4 F 06/21/19 05:28 Pulse Rate 55 L 06/21/19 05:28 Respiratory Rate 20 06/21/19 05:28 Blood Pressure 128/72 06/21/19 05:28 O2 Sat by Pulse Oximetry (%) 99 06/20/19 20:06 Cardiovascular: Yes: Regular Rate and Rhythm Respiratory: Yes: Regular, CTA Bilaterally Gastrointestinal: Yes: Normal Bowel Sounds, Soft Labs: CBC, BMP 06/19/19 11:19 06/21/19 05:30 INR, PTT INR 1.18 (0.83-1.09) H 06/19/19 02:33 Problem List - Problems (1) Chest pain Assessment/Plan: ce negative stress test positive pt still with cp will start imdur follow up ce Code(s): R07.9 - CHEST PAIN, UNSPECIFIED Qualifiers: Chest pain type: unspecified Qualified Code(s): R07.9 - Chest pain, unspecified (2) Hx of CABG Assessment/Plan: same meds Code(s): Z95.1 - PRESENCE OF AORTOCORONARY BYPASS GRAFT (3) DANIA (acute kidney injury) Assessment/Plan: improved Code(s): N17.9 - ACUTE KIDNEY FAILURE, UNSPECIFIED (4) HLD (hyperlipidemia) Code(s): E78.5 - HYPERLIPIDEMIA, UNSPECIFIED (5) Liver transplant recipient Assessment/Plan: lft ok Code(s): Z94.4 - LIVER TRANSPLANT STATUS
[2019-06-21] MEDS: FAMOTIDINE 20 MG/50 ML IVPB 20 MG/50 ML MG IVPB SCH ×2 (09:57→21:32)
[2019-06-21] MEDS: OXYBUTYNIN CHLORIDE 5 MG TABLET PO SCH (09:57)
[2019-06-21] MEDS: metoPROLOL SUCCINATE 25 MG TAB.SR.24H (FP) PO SCH (09:58)
[2019-06-21] MEDS: FERROUS SO4 325 MG TABLET (FP) PO SCH (09:58)
[2019-06-21] MEDS: DONEPEZIL HCL 5 MG TABLET (FP) PO SCH (09:58)
[2019-06-21] MEDS: VITAMIN B COMP W-C 1 EA TABLET PO SCH (09:58)
[2019-06-21] MEDS: ASPIRIN 81 MG CHEWABLE TABLETS PO SCH (09:58)
[2019-06-21] MEDS: LIDOCAINE 5% TOPICAL PATCH TP SCH (09:59)
[2019-06-21] MEDS: ISOSORBIDE MONONITRATE 30 MG TAB.SR.24H (FP) PO SCH (10:18)
[2019-06-21] MEDS ORDERED: METHADONE HCL 40 MG DISPERSABLE TABLET PO SCH (11:00)
[2019-06-21] MEDS ORDERED: cycloSPORINE (SANDIMMUNE) 25 MG CAPSULE PO ONE (12:00)
[2019-06-21] MEDS ORDERED: METHADONE HCL 5 MG TABLET PO SCH (12:00)
[2019-06-21] MEDS: METHADONE HCL 5 MG TABLET PO SCH (12:03)
[2019-06-21] MEDS: ATORVASTATIN CA 20 MG TABLET (FP) PO SCH (21:32)
[2019-06-21] MEDS: TAMSULOSIN HCL 0.4 MG CAP PO SCH (21:32)
[2019-06-21] MEDS: LIDOCAINE PATCH REMOVAL MC SCH (21:33)
[2019-06-21] MEDS: ACETAMINOPHEN 325 MG TABLET (FP) PO PRN (21:40)
[2019-06-21] MEDS ORDERED: cycloSPORINE (SANDIMMUNE) 25 MG CAPSULE PO SCH (22:00)
[2019-06-22] MEDS ORDERED: METHADONE HCL 5 MG TABLET PO SCH (06:00)
[2019-06-22] MEDS: METHADONE HCL 5 MG TABLET PO SCH (06:32)
[2019-06-22] MEDS: cycloSPORINE (SANDIMMUNE) 25 MG CAPSULE PO SCH (06:33)
[2019-06-22] MEDS: HEPARIN NA (PORCINE) 5,000 UNITS/ML 1ML VIAL SQ SCH ×3 (06:33→21:29)
[2019-06-22] MEDS: metoPROLOL SUCCINATE 25 MG TAB.SR.24H (FP) PO SCH (09:35)
[2019-06-22] MEDS: ISOSORBIDE MONONITRATE 30 MG TAB.SR.24H (FP) PO SCH (09:35)
[2019-06-22] MEDS: VITAMIN B COMP W-C 1 EA TABLET PO SCH (09:35)
[2019-06-22] MEDS: FERROUS SO4 325 MG TABLET (FP) PO SCH (09:35)
[2019-06-22] MEDS: DONEPEZIL HCL 5 MG TABLET (FP) PO SCH (09:35)
[2019-06-22] MEDS: ASPIRIN 81 MG CHEWABLE TABLETS PO SCH (09:35)
[2019-06-22] MEDS: LIDOCAINE 5% TOPICAL PATCH TP SCH (09:37)
[2019-06-22] MEDS: OXYBUTYNIN CHLORIDE 5 MG TABLET PO SCH (09:57)
[2019-06-22] MEDS: FAMOTIDINE 20 MG/50 ML IVPB 20 MG/50 ML MG IVPB SCH ×2 (10:28→21:29)
--- NOTE | 2019-06-22 10:55 | PN ---
Progress Note, Physician Chief Complaint: Chest Pain Hepatitis C RUQ pain History of Present Illness: Previous notes and events reviewed awake and alert NAD continue to complain mid chest pain, non-radiating, burning sensation Stress test done - Current Medication List Current Medications: Active Medications Acetaminophen (Tylenol -) 650 mg PO Q4H PRN PRN Reason: FOR CHEST PAIN Last Admin: 06/21/19 21:40 Dose: 650 mg Aspirin (Asa -) 81 mg PO DAILY [facility] Last Admin: 06/22/19 09:35 Dose: 81 mg Atorvastatin Calcium (Lipitor -) 20 mg PO HS [facility] Last Admin: 06/21/19 21:32 Dose: 20 mg Cyclosporine (Sandimmune) 75 mg PO AM [facility] Last Admin: 06/22/19 06:33 Dose: 75 mg Cyclosporine (Sandimmune) 100 mg PO HS [facility] Donepezil HCl (Aricept -) 5 mg PO DAILY [facility] Last Admin: 06/22/19 09:35 Dose: 5 mg Ferrous Sulfate (Feosol -) 325 mg PO DAILY [facility] Last Admin: 06/22/19 09:35 Dose: 325 mg Heparin Sodium (Porcine) (Heparin -) 5,000 unit SQ TID [facility] Last Admin: 06/22/19 06:33 Dose: 5,000 unit Famotidine/Sodium Chloride (Pepcid 20 Mg Premixed Ivpb -) 20 mg in 50 mls @ 100 mls/hr IVPB BID [facility] Last Admin: 06/22/19 10:28 Dose: 100 mls/hr Isosorbide Mononitrate (Imdur -) 30 mg PO DAILY [facility] Last Admin: 06/22/19 09:35 Dose: 30 mg Lidocaine (Lidoderm Patch -) 1 patch TP DAILY [facility] Last Admin: 06/22/19 09:37 Dose: 1 patch Methadone HCl (Dolophine -) 5 mg PO DAILY@0600 [facility] Last Admin: 06/22/19 06:32 Dose: 5 mg Metoprolol Succinate (Toprol Xl -) 25 mg PO DAILY [facility] Last Admin: 06/22/19 09:35 Dose: 25 mg Miscellaneous (Lidoderm Patch Removal) 1 each MC DAILY@2200 [facility] Last Admin: 06/21/19 21:33 Dose: 1 each Multivit/Ca Carb/B Cmplx/FA/Prenat (Nephro-Jeri -) 1 tablet PO DAILY [facility] Last Admin: 06/22/19 09:35 Dose: 1 tablet Oxybutynin Chloride (Ditropan -) 10 mg PO DAILY [facility] Last Admin: 06/22/19 09:57 Dose: 10 mg Tamsulosin HCl (Flomax -) 0.4 mg PO HS [facility] Last Admin: 06/21/19 21:32 Dose: 0.4 mg - Objective Vital Signs: Vital Signs Temperature 98.1 F 06/22/19 02:14 Pulse Rate 57 L 06/22/19 05:46 Respiratory Rate 20 06/22/19 05:46 Blood Pressure 117/82 06/22/19 05:46 O2 Sat by Pulse Oximetry (%) 99 06/21/19 12:00 Constitutional: Yes: No Distress, Calm Eyes: Yes: Conjunctiva Clear HENT: Yes: Atraumatic Neck: Yes: Supple Cardiovascular: Yes: Regular Rate and Rhythm Respiratory: Yes: Regular, CTA Bilaterally Gastrointestinal: Yes: Normal Bowel Sounds, Soft Musculoskeletal: Yes: WNL Extremities: Yes: WNL Edema: No Neurological: Yes: Alert, Oriented Psychiatric: Yes: Alert, Oriented Labs: CBC, BMP 06/19/19 11:19 06/21/19 05:30 INR, PTT INR 1.18 (0.83-1.09) H 06/19/19 02:33 Problem List - Problems (1) Chest pain Assessment/Plan: -Tele monitoring -Cardiology on board -Trop neg x 2 -Nuclear Stress test shows mild inferior ischemia, LVEF 62% -Aspirin -Imdur Code(s): R07.9 - CHEST PAIN, UNSPECIFIED Qualifiers: Chest pain type: unspecified Qualified Code(s): R07.9 - Chest pain, unspecified (2) Liver transplant recipient Assessment/Plan: -LFTs nl Code(s): Z94.4 - LIVER TRANSPLANT STATUS (3) DANIA (acute kidney injury) Assessment/Plan: -BUN/Cr 12.5/1.2 -monitor renal function -Renal US shows unremarkeable Code(s): N17.9 - ACUTE KIDNEY FAILURE, UNSPECIFIED (4) RUQ pain Assessment/Plan: -Abdominal US minimal hepatomegaly with mild fatty infiltration of liver, s/p cholecystectomy -lipase 64 Code(s): R10.11 - RIGHT UPPER QUADRANT PAIN Assessment/Plan see problem list dvt ppx
--- NOTE | 2019-06-22 17:34 | PN ---
Progress Note, Physician Chief Complaint: Chest pain History of Present Illness: The patient is a 63-year-old man, we have a history of hypertension, hyperlipidemia, hepatitis C and alcoholism, liver cirrhosis, status post liver transplant 2011, coronary artery disease, status post CABG 08/06/2018 (GONZALEZ to the LAD, SVG to OM), now presenting with exertional chest pains. 06/22/19 He had brief episodes of chest pain last night. - Current Medication List Current Medications: Active Medications Acetaminophen (Tylenol -) 650 mg PO Q4H PRN PRN Reason: FOR CHEST PAIN Last Admin: 06/21/19 21:40 Dose: 650 mg Aspirin (Asa -) 81 mg PO DAILY [facility] Last Admin: 06/22/19 09:35 Dose: 81 mg Atorvastatin Calcium (Lipitor -) 20 mg PO HS [facility] Last Admin: 06/21/19 21:32 Dose: 20 mg Cyclosporine (Sandimmune) 75 mg PO AM [facility] Last Admin: 06/22/19 06:33 Dose: 75 mg Cyclosporine (Sandimmune) 100 mg PO HS [facility] Donepezil HCl (Aricept -) 5 mg PO DAILY [facility] Last Admin: 06/22/19 09:35 Dose: 5 mg Ferrous Sulfate (Feosol -) 325 mg PO DAILY [facility] Last Admin: 06/22/19 09:35 Dose: 325 mg Heparin Sodium (Porcine) (Heparin -) 5,000 unit SQ TID [facility] Last Admin: 06/22/19 13:35 Dose: 5,000 unit Famotidine/Sodium Chloride (Pepcid 20 Mg Premixed Ivpb -) 20 mg in 50 mls @ 100 mls/hr IVPB BID [facility] Last Admin: 06/22/19 10:28 Dose: 100 mls/hr Isosorbide Mononitrate (Imdur -) 30 mg PO DAILY [facility] Last Admin: 06/22/19 09:35 Dose: 30 mg Lidocaine (Lidoderm Patch -) 1 patch TP DAILY [facility] Last Admin: 06/22/19 09:37 Dose: 1 patch Methadone HCl (Dolophine -) 5 mg PO DAILY@0600 [facility] Last Admin: 06/22/19 06:32 Dose: 5 mg Metoprolol Succinate (Toprol Xl -) 25 mg PO DAILY [facility] Last Admin: 06/22/19 09:35 Dose: 25 mg Miscellaneous (Lidoderm Patch Removal) 1 each MC DAILY@2200 [facility] Last Admin: 06/21/19 21:33 Dose: 1 each Multivit/Ca Carb/B Cmplx/FA/Prenat (Nephro-Jeri -) 1 tablet PO DAILY [facility] Last Admin: 06/22/19 09:35 Dose: 1 tablet Oxybutynin Chloride (Ditropan -) 10 mg PO DAILY [facility] Last Admin: 06/22/19 09:57 Dose: 10 mg Tamsulosin HCl (Flomax -) 0.4 mg PO HS [facility] Last Admin: 06/21/19 21:32 Dose: 0.4 mg - Objective Vital Signs: Vital Signs Temperature 98.1 F 06/22/19 10:00 Pulse Rate 62 06/22/19 10:00 Respiratory Rate 20 06/22/19 10:00 Blood Pressure 134/77 06/22/19 10:00 O2 Sat by Pulse Oximetry (%) 99 06/21/19 12:00 Constitutional: Yes: No Distress Eyes: Yes: WNL HENT: Yes: WNL Neck: Yes: WNL Cardiovascular: Yes: Regular Rate and Rhythm, S1, S2 Respiratory: Yes: CTA Bilaterally Gastrointestinal: Yes: Soft Extremities: Yes: WNL Edema: No Neurological: Yes: Alert, Oriented Labs: CBC, BMP 06/19/19 11:19 06/21/19 05:30 INR, PTT INR 1.18 (0.83-1.09) H 06/19/19 02:33 Assessment/Plan 63-year-old man, we have a history of hypertension, hyperlipidemia, hepatitis C and alcoholism, liver cirrhosis, status post liver transplant 2011, coronary artery disease, status post CABG 08/06/2018 (GONZALEZ to the LAD, SVG to OM), now presenting with exertional chest pains. Stress test 06/21/19 showed Small and mild ischemia mid to basal inferior wall. Normal LV EF. 06/22/19 He had brief episodes of chest pain last night. Continue medical therapy for angina: No Beta blockers given bradycardia Would increase Imdur to 60 mg PO daily
[2019-06-22] MEDS ORDERED: PT OWN MED DRAWER 7, Y5N ONE (21:22)
[2019-06-22] MEDS: ATORVASTATIN CA 20 MG TABLET (FP) PO SCH (21:29)
[2019-06-22] MEDS: TAMSULOSIN HCL 0.4 MG CAP PO SCH (21:29)
[2019-06-22] MEDS: ACETAMINOPHEN 325 MG TABLET (FP) PO PRN (21:29)
[2019-06-22] MEDS: LIDOCAINE PATCH REMOVAL MC SCH (21:30)
[2019-06-23] MEDS: HEPARIN NA (PORCINE) 5,000 UNITS/ML 1ML VIAL SQ SCH (05:33)
[2019-06-23] MEDS: METHADONE HCL 5 MG TABLET PO SCH (05:33)
[2019-06-23] MEDS: cycloSPORINE (SANDIMMUNE) 25 MG CAPSULE PO SCH (06:15)
[2019-06-23] MEDS ORDERED: ISOSORBIDE MONONITRATE 60 MG TAB.SR.24H (FP) PO SCH (08:08)
[2019-06-23 08:13] LABS: HEMATOCRIT 36.2 % (35.4-49); HEMOGLOBIN 12.6 GM/dL (11.7-16.9); MCH 32.2 pg (25.7-33.7); MCHC 34.9 g/dl (32.0-35.9); MEAN CELL VOLUME 92.4 fl (80-96); MEAN PLT VOLUME 9.8 fl (7.5-11.1); RBC 3.92 M/mm3 (4.00-5.60); RDW 13.5 % (11.9-15.9); WHITE BLOOD COUNT 4.1 K/mm3 (4.0-10.0)
[2019-06-23 08:35] LABS: PLATELET COUNT 123 K/MM3 (134-434)
[2019-06-23 08:47] LABS: ALBUMIN 3.7 g/dl (3.4-5.0); BILIRUBIN,TOTAL 0.8 mg/dL (0.2-1); BLOOD UREA NITROGEN 12.5 mg/dL (7-18); CALCIUM 9.2 mg/dL (8.5-10.1); CREATININE 1.2 mg/dL (0.55-1.3); POTASSIUM 4.2 mmol/L (3.5-5.1); TOT PROT 6.7 g/dl (6.4-8.2)
--- NOTE | 2019-06-23 08:55 | DS ---
Physical Examination Vital Signs: Vital Signs Temperature 98.4 F 06/23/19 06:00 Pulse Rate 57 L 06/23/19 06:00 Respiratory Rate 20 06/23/19 06:00 Blood Pressure 120/83 06/23/19 06:00 O2 Sat by Pulse Oximetry (%) 97 06/22/19 20:00 Findings/Remarks: Patient is a 63 y/o male with past medical history of CABG s/p [place], HTN, Hep C, liver transplant s/p cirrhosis. Patient presented to ER with complaints of mid sternal intermittent non radiating burning chest pain for 1 week. Pain started while walking in the park or exertion and improves with rest. Constitutional: Yes: No Distress, Calm Eyes: Yes: Conjunctiva Clear HENT: Yes: Atraumatic Cardiovascular: Yes: Regular Rate and Rhythm Respiratory: Yes: Regular, CTA Bilaterally Gastrointestinal: Yes: Normal Bowel Sounds, Soft Musculoskeletal: Yes: WNL Extremities: Yes: WNL Edema: No Neurological: Yes: Alert, Oriented Psychiatric: Yes: Alert, Oriented Labs: CBC, BMP 06/23/19 06:40 06/23/19 06:40 Discharge Summary Reason For Visit: CHEST PAIN Current Active Problems DANIA (acute kidney injury) (Acute) Chest pain (Acute) HLD (hyperlipidemia) (Acute) Hx of CABG (Acute) RUQ pain (Acute) Procedures: Principal: Stress Test Hospital Course: Troponin neg Stress Test show small size mild intensity reversible defect of inferior wall from base to mild ventricle consistent with ischemia, no TID, normal LV wall motion, LVEF 62% Laboratory Tests 06/19/19 06/19/19 06/19/19 02:33 02:33 02:33 WBC 6.0 RBC 4.08 Hgb 12.9 Hct 38.0 MCV 93.1 MCH 31.7 MCHC 34.0 RDW 13.3 Plt Count 115 L D MPV 9.6 Absolute Neuts (auto) 3.8 Neutrophils % 64.0 D Lymphocytes % 21.8 D Monocytes % 8.6 Eosinophils % 4.7 H D Basophils % 0.9 Nucleated RBC % 0 PT with INR INR PTT (Actin FS) 36.6 H Sodium Potassium Chloride Carbon Dioxide Anion Gap BUN Creatinine Est GFR (CKD-EPI)AfAm Est GFR (CKD-EPI)NonAf Random Glucose Calcium Total Bilirubin AST ALT Alkaline Phosphatase Creatine Kinase 163 Creatine Kinase Index 1.1 CK-MB (CK-2) 1.9 Troponin I < 0.02 Total Protein Albumin Triglycerides Cholesterol Total LDL Cholesterol HDL Cholesterol Lipase 06/19/19 06/19/19 06/19/19 02:33 02:33 11:19 WBC 4.1 RBC 4.13 Hgb 13.0 Hct 38.5 MCV 93.2 MCH 31.4 MCHC 33.7 RDW 13.4 Plt Count 103 L MPV 9.3 Absolute Neuts (auto) 2.8 Neutrophils % 68.3 Lymphocytes % 19.8 Monocytes % 6.9 Eosinophils % 4.3 Basophils % 0.7 Nucleated RBC % 0 PT with INR 13.90 H INR 1.18 H PTT (Actin FS) Sodium 138 Potassium 4.5 Chloride 103 Carbon Dioxide 28 Anion Gap 7 L BUN 20.4 H Creatinine 1.6 H Est GFR (CKD-EPI)AfAm 51.99 Est GFR (CKD-EPI)NonAf 44.86 Random Glucose 104 Calcium 8.5 Total Bilirubin 0.6 AST 27 ALT 31 Alkaline Phosphatase 99 Creatine Kinase Creatine Kinase Index CK-MB (CK-2) Troponin I Total Protein 6.8 Albumin 3.8 Triglycerides Cholesterol Total LDL Cholesterol HDL Cholesterol Lipase 06/19/19 06/21/19 06/21/19 11:19 05:30 10:20 WBC RBC Hgb Hct MCV MCH MCHC RDW Plt Count MPV Absolute Neuts (auto) Neutrophils % Lymphocytes % Monocytes % Eosinophils % Basophils % Nucleated RBC % PT with INR INR PTT (Actin FS) Sodium 142 141 Potassium 4.7 4.1 Chloride 110 H 110 H Carbon Dioxide 27 26 Anion Gap 5 L 5 L BUN 18.2 H 12.5 Creatinine 1.2 1.2 Est GFR (CKD-EPI)AfAm 73.62 73.62 Est GFR (CKD-EPI)NonAf 63.52 63.52 Random Glucose 105 110 H Calcium 8.7 8.9 Total Bilirubin 0.7 0.8 AST 20 17 ALT 27 23 Alkaline Phosphatase 98 95 Creatine Kinase 180 Creatine Kinase Index No Result Required. CK-MB (CK-2) < 1.0 Troponin I < 0.02 < 0.02 Total Protein 6.4 6.5 Albumin 3.6 3.6 Triglycerides 134 Cholesterol 113 Total LDL Cholesterol 61 HDL Cholesterol 35 L Lipase 64 L 06/23/19 06/23/19 06:40 06:40 WBC 4.1 RBC 3.92 L Hgb 12.6 Hct 36.2 MCV 92.4 MCH 32.2 MCHC 34.9 RDW 13.5 Plt Count 123 L MPV 9.8 Absolute Neuts (auto) Neutrophils % Lymphocytes % Monocytes % Eosinophils % Basophils % Nucleated RBC % PT with INR INR PTT (Actin FS) Sodium 141 Potassium 4.2 Chloride 110 H Carbon Dioxide 27 Anion Gap 5 L BUN 12.5 Creatinine 1.2 Est GFR (CKD-EPI)AfAm 73.62 Est GFR (CKD-EPI)NonAf 63.52 Random Glucose 110 H Calcium 9.2 Total Bilirubin 0.8 AST 24 ALT 31 Alkaline Phosphatase 91 Creatine Kinase Creatine Kinase Index CK-MB (CK-2) Troponin I Total Protein 6.7 Albumin 3.7 Triglycerides Cholesterol Total LDL Cholesterol HDL Cholesterol Lipase Home Medication List Medication Instructions Recorded Confirmed Type Aspirin [Kvng Chewable Aspirin] 81 mg PO DAILY 07/18/18 06/19/19 History Atorvastatin Ca [Lipitor] 20 mg PO DAILY 07/18/18 06/19/19 History Cyclosporine, Modified [Gengraf] 25 mg PO DAILY 07/18/18 06/19/19 History Cyclosporine, Modified [Gengraf] 100 mg PO HS 07/18/18 06/19/19 History Donepezil HCl [Aricept] 5 mg PO DAILY 07/18/18 06/19/19 History Oxybutynin Chloride [Oxybutynin 10 mg PO DAILY 07/18/18 06/19/19 History Chloride ER] Tamsulosin HCl [Flomax -] 0.4 mg PO HS 07/18/18 06/19/19 History Vit B Complx C/Folic Acid/Zinc 1 tab PO DAILY 07/18/18 06/19/19 History Dexlansoprazole [Dexilant] 60 mg PO AM 06/19/19 06/19/19 History Docusate Sodium [Colace] 100 mg PO TID 06/19/19 06/19/19 History Ferrous Sulfate 325 mg PO DAILY 06/19/19 06/19/19 History Linaclotide [Linzess] 72 mg PO DAILY PRN 06/19/19 06/19/19 History Pitavastatin Calcium [Livalo] 4 mg PO DAILY 06/19/19 06/19/19 History Active Medications Generic Name Dose Route Start Last Admin Trade Name Freq PRN Reason Stop Dose Admin Acetaminophen 650 mg 06/19/19 05:08 06/22/19 21:29 Tylenol - PO 650 mg Q4H PRN Administration FOR CHEST PAIN Aspirin 81 mg 06/19/19 10:00 06/22/19 09:35 Asa - PO 81 mg DAILY MJ Administration Atorvastatin Calcium 20 mg 06/19/19 22:00 06/22/19 21:29 Lipitor - PO 20 mg HS MJ Administration Cyclosporine 75 mg 06/22/19 07:00 06/23/19 06:15 Sandimmune PO 75 mg AM MJ Administration Cyclosporine 100 mg 06/22/19 22:00 06/22/19 21:29 Sandimmune PO 100 mg HS MJ Administration Docusate Sodium 100 mg 06/23/19 14:00 Colace - PO TID MJ Donepezil HCl 5 mg 06/19/19 10:00 06/22/19 09:35 Aricept - PO 5 mg DAILY MJ Administration Ferrous Sulfate 325 mg 06/19/19 10:00 06/22/19 09:35 Feosol - PO 325 mg DAILY [facility]J Administration Heparin Sodium (Porcine) 5,000 unit 06/19/19 06:00 06/23/19 05:33 Heparin - SQ 5,000 unit TID MJ Administration Famotidine/Sodium Chloride 20 mg in 50 mls @ 100 mls/hr 06/19/19 10:00 21:29 Pepcid 20 Mg Premixed Ivpb - IVPB 100 mls/hr BID MJ Administration Isosorbide Mononitrate 60 mg 06/23/19 08:08 Imdur - PO DAILY [facility] Lidocaine 1 patch 06/20/19 10:00 06/22/19 09:37 Lidoderm Patch - TP 1 patch DAILY [facility]J Administration Loratadine 10 mg 06/23/19 10:00 Claritin - PO DAILY MJ Methadone HCl 5 mg 06/21/19 12:00 06/23/19 05:33 Dolophine - PO 5 mg DAILY@0600 MJ Administration Miscellaneous 1 each 06/19/19 22:00 06/22/19 21:30 Lidoderm Patch Removal MC 1 each DAILY@2200 MJ Administration Multivit/Ca Carb/B Cmplx/FA/Prenat 1 tablet 06/19/19 10:00 06/22/19 09:35 Nephro-Jeri - PO 1 tablet DAILY [facility]J Administration Oxybutynin Chloride 10 mg 06/19/19 10:00 06/22/19 09:57 Ditropan - PO 10 mg DAILY [facility]J Administration Tamsulosin HCl 0.4 mg 06/19/19 22:00 06/22/19 21:29 Flomax - PO 0.4 mg HS MJ Administration Condition: Stable - Instructions Diet, Activity, Other Instructions: follow up with pmd in 1 week of discharge 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 Stevenson follow up with Dr Almazan (liver transplant doctor) as scheduled decrease Metoprolol to 12.5mg daily continue rest of medication as prescribed return to ER if develop severe respiratory distress, chest pain Disposition: HOME - Home Medications Comprehensive Discharge Medication List: Ambulatory Orders Aspirin [Kvng Chewable Aspirin] 81 mg PO DAILY 07/18/18 Atorvastatin Ca [Lipitor] 20 mg PO DAILY 07/18/18 Cyclosporine, Modified [Gengraf] 25 mg PO DAILY 07/18/18 Cyclosporine, Modified [Gengraf] 100 mg PO HS 07/18/18 Donepezil HCl [Aricept] 5 mg PO DAILY 07/18/18 Metoprolol Succinate [Toprol Xl] 25 mg PO DAILY 07/18/18 Oxybutynin Chloride [Oxybutynin Chloride ER] 10 mg PO DAILY 07/18/18 Tamsulosin HCl [Flomax -] 0.4 mg PO HS 07/18/18 Vit B Complx C/Folic Acid/Zinc 1 tab PO DAILY 07/18/18 Dexlansoprazole [Dexilant] 60 mg PO AM 06/19/19 Docusate Sodium [Colace] 100 mg PO TID 06/19/19 Ferrous Sulfate 325 mg PO DAILY 06/19/19 Linaclotide [Linzess] 72 mg PO DAILY PRN 06/19/19 Pitavastatin Calcium [Livalo] 4 mg PO DAILY 06/19/19
[2019-06-23] MEDS: FERROUS SO4 325 MG TABLET (FP) PO SCH (09:45)
[2019-06-23] MEDS: VITAMIN B COMP W-C 1 EA TABLET PO SCH (09:45)
[2019-06-23] MEDS: DONEPEZIL HCL 5 MG TABLET (FP) PO SCH (09:45)
[2019-06-23] MEDS: FAMOTIDINE 20 MG/50 ML IVPB 20 MG/50 ML MG IVPB SCH (09:45)
[2019-06-23] MEDS ORDERED: PT OWN MED DRAWER 7, Y5N ONE (09:53)
[2019-06-23] MEDS ORDERED: LORATADINE 10 MG TABLET PO SCH (10:00)
[2019-06-23] MEDS: ASPIRIN 81 MG CHEWABLE TABLETS PO SCH (10:01)
[2019-06-23] MEDS: LIDOCAINE 5% TOPICAL PATCH TP SCH (10:02)
[2019-06-23] MEDS: OXYBUTYNIN CHLORIDE 5 MG TABLET PO SCH (10:03)
[2019-06-23 10:36] VITALS: BP 133/74; PULSE 61; TEMP 98.1
[2019-06-23] MEDS ORDERED: DOCUSATE SODIUM 100 MG CAPSULE (FP) PO SCH (14:00)
== END 2019-06-23 12:24 | disposition home or self-care (01) ==
LOC: JER 23:36 → JERBED 06-19 04:20 → J4W 06-19 20:08
PROVIDERS: ADMIT Internal Medicine; ATTEND Family Medicine
PROC: 3E033NZ Introduction of Analgesics, Hypnotics, Sedatives into Peripheral Vein, Percutaneous Approach (ICD-10-PCS; principal; 2019-06-19)
PROC: 3E0337Z Introduction of Electrolytic and Water Balance Substance into Peripheral Vein, Percutaneous Approach (ICD-10-PCS; 2019-06-19)
PROC: 3E033GC Introduction of Other Therapeutic Substance into Peripheral Vein, Percutaneous Approach (ICD-10-PCS; 2019-06-19)
PROC: 3E013GC Introduction of Other Therapeutic Substance into Subcutaneous Tissue, Percutaneous Approach (ICD-10-PCS; 2019-06-19)
DX: R07.9 Chest pain, unspecified (principal); I10 Essential (primary) hypertension; E78.5 Hyperlipidemia, unspecified; R00.1 Bradycardia, unspecified; I25.2 Old myocardial infarction; I25.10 Atherosclerotic heart disease of native coronary artery without angina pectoris; N17.9 Acute kidney failure, unspecified; K21.9 Gastro-esophageal reflux disease without esophagitis; Z95.1 Presence of aortocoronary bypass graft; Z94.4 Liver transplant status; Z79.82 Long term (current) use of aspirin
CPT/HCPCS: 36415; 71045-TC-FY; 76700-TC; 76775-TC; 78452-TC; 80053; 80061; 82550; 82553; 83690; 83721; 84484; 85025; 85027; 85610; 85730; 93005; 93010; 93017; 96361; 96365; 96372; 96375; 99285-25; A9502; G0378; J0131; J1644; J2785; J7030; J7502

== ENCOUNTER 2021-03-04 00:55 | Observation (INO) | payer MEDICARE, OTHER ==
[2021-03-04 01:08] VITALS: BMI 31.3
[2021-03-04] MEDS ORDERED: ASPIRIN 81 MG CHEWABLE TABLETS PO ONE ×2 (01:23)
[2021-03-04] MEDS ORDERED: ASPIRIN 81 MG CHEWABLE TABLETS ONE (01:57)
[2021-03-04 02:17] LABS: BASO % 0.9 % (0-2.0); EOS % 4.4 % (0-4.5); HEMATOCRIT 30.3 % (35.4-49); HEMOGLOBIN 10.7 GM/dL (11.7-16.9); LYMPH % 22.4 % (8-40); MCH 32.1 pg (25.7-33.7); MCHC 35.2 g/dl (32.0-35.9); MEAN CELL VOLUME 91.1 fl (80-96); MEAN PLT VOLUME 9.5 fl (7.5-11.1); MONO % 9.7 % (3.8-10.2); NEUT % 62.6 % (42.8-82.8); PLATELET COUNT 121 K/MM3 (134-434); RBC 3.32 M/mm3 (4.00-5.60); RDW 13.1 % (11.9-15.9); WHITE BLOOD COUNT 4.2 K/mm3 (4.0-10.0)
[2021-03-04 02:31] LABS: CALCIUM 8.2 mg/dL (8.5-10.1); SODIUM 134 mmol/L (136-145)
[2021-03-04 02:32] LABS: ALBUMIN 3.6 g/dl (3.4-5.0); BLOOD UREA NITROGEN 36.6 mg/dL (7-18); CO2 28 mmol/L (21-32); GLUCOSE,RANDOM 149 mg/dL (74-106); MAGNESIUM 1.5 mg/dL (1.8-2.4)
[2021-03-04 02:35] LABS: SGOT/AST 32 U/L (15-37); SGPT/ALT 32 U/L (13-61)
[2021-03-04 02:37] LABS: BILIRUBIN,TOTAL 0.5 mg/dL (0.2-1); TOT PROT 6.4 g/dl (6.4-8.2)
[2021-03-04 02:38] LABS: ALK PHOS 95 U/L (45-117)
[2021-03-04 02:40] LABS: N-TERMINAL BNP 711.4 pg/ml (5-125)
[2021-03-04] MEDS ORDERED: SODIUM CHLORIDE 1,000 ML IV SCH ×2 (02:45→11:53)
[2021-03-04 03:37] LABS: ANION GAP 6 MMOL/L (8-16); CHLORIDE 101 mmol/L (98-107)
[2021-03-04] MEDS ORDERED: FUROSEMIDE 40 MG/4 ML INJECTABLE VIAL IVPUSH ONE (04:39)
[2021-03-04] MEDS ORDERED: MAGNESIUM SULF 50% (8.12 MEQ/2 ML-1 GM VIAL) IVPB ONE (04:47)
[2021-03-04] MEDS ORDERED: FUROSEMIDE 40 MG/4 ML INJECTABLE VIAL ONE (04:52)
[2021-03-04] MEDS ORDERED: MAGNESIUM 1GM/D5W - 1 GM/100 ML IVPB IVPB ONE (04:52)
[2021-03-04] MEDS ORDERED: HEPARIN NA (PORCINE) 5,000 UNITS/ML 1ML VIAL ONE ×2 (04:52→15:57)
[2021-03-04] MEDS ORDERED: ALBUTEROL SO4 HFA INHALER IH PRN (04:58)
[2021-03-04 05:24] LABS: URINE APPEARANCE CLEAR; URINE BILIRUBIN NEGATIVE (NEGATIVE); URINE COLOR YELLOW; URINE GLUCOSE (UA) NEGATIVE (NEGATIVE); URINE KETONE NEGATIVE (NEGATIVE); URINE LEUK ESTERASE NEGATIVE (NEGATIVE); URINE NITRITE NEGATIVE (NEGATIVE); URINE PROTEIN NEGATIVE (NEGATIVE)
[2021-03-04] MEDS: HEPARIN NA (PORCINE) 5,000 UNITS/ML 1ML VIAL SQ SCH ×3 (05:33→21:36)
[2021-03-04 05:44] LABS: BASO % 1.2 % (0-2.0); EOS % 4.2 % (0-4.5); HEMATOCRIT 32.6 % (35.4-49); HEMOGLOBIN 11.6 GM/dL (11.7-16.9); LYMPH % 20.1 % (8-40); MCH 31.8 pg (25.7-33.7); MCHC 35.4 g/dl (32.0-35.9); MEAN CELL VOLUME 89.9 fl (80-96); MONO % 9.2 % (3.8-10.2); NEUT % 65.3 % (42.8-82.8); PLATELET COUNT 122 K/MM3 (134-434); RBC 3.63 M/mm3 (4.00-5.60); RDW 12.9 % (11.9-15.9); WHITE BLOOD COUNT 4.9 K/mm3 (4.0-10.0)
[2021-03-04 06:05] LABS: CHLORIDE 101 mmol/L (98-107); SODIUM 135 mmol/L (136-145)
[2021-03-04 06:08] LABS: CALCIUM 8.8 mg/dL (8.5-10.1)
[2021-03-04 06:09] LABS: ALBUMIN 3.8 g/dl (3.4-5.0); ANION GAP 6 MMOL/L (8-16); BLOOD UREA NITROGEN 36.1 mg/dL (7-18); CO2 28 mmol/L (21-32); GLUCOSE,RANDOM 122 mg/dL (74-106); MAGNESIUM 1.8 mg/dL (1.8-2.4)
[2021-03-04 06:11] LABS: SGPT/ALT 33 U/L (13-61)
[2021-03-04 06:12] LABS: CHOLESTEROL 140 mg/dL (50-200); SGOT/AST 27 U/L (15-37); TRIGLYCERIDES 234 mg/dL (0-150)
[2021-03-04 06:13] LABS: BILIRUBIN,TOTAL 0.6 mg/dL (0.2-1); LDL CHOLESTEROL (ONLY SJRH) 69 mg/dL (5-100); TOT PROT 6.7 g/dl (6.4-8.2)
[2021-03-04 06:14] LABS: ALK PHOS 100 U/L (45-117); HDL CHOLESTEROL 31 mg/dL (40-60)
[2021-03-04] MEDS: PANTOPRAZOLE 40 MG TABLET PO SCH (08:25)
[2021-03-04] MEDS ORDERED: PANTOPRAZOLE 40 MG TABLET ONE (08:25)
[2021-03-04] MEDS ORDERED: DOCUSATE SODIUM 100 MG CAPSULE (FP) PO ONE (08:43)
[2021-03-04] MEDS ORDERED: LIDOCAINE 5% TOPICAL PATCH ONE (08:45)
[2021-03-04] MEDS ORDERED: FUROSEMIDE 40 MG TABLET (FP) ONE (08:46)
[2021-03-04] MEDS: DOCUSATE SODIUM 100 MG CAPSULE (FP) PO SCH ×2 (09:03→21:36)
[2021-03-04] MEDS: LIDOCAINE 5% TOPICAL PATCH TP SCH (09:03)
[2021-03-04] MEDS: cycloSPORINE (SANDIMMUNE) 25 MG CAPSULE PO SCH ×2 (09:03→21:35)
[2021-03-04] MEDS ORDERED: FUROSEMIDE 40 MG TABLET (FP) PO SCH (10:00)
[2021-03-04] MEDS: BUDESONIDE/FORMETEROL FUMARATE 160/4.5 mcg INHALER IH SCH ×2 (10:00→21:39)
[2021-03-04] MEDS ORDERED: PATIENT'S OWN MEDICATION (NON-FORMULARY) (Alfuzosin Hcl [Alfuzosin Hcl Er] 10 MG Tab.Er.24 PO SCH (10:00)
[2021-03-04] MEDS ORDERED: metoPROLOL SUCCINATE 25 MG TAB.SR.24H (FP) ONE (11:58)
[2021-03-04] MEDS: metoPROLOL SUCCINATE 25 MG TAB.SR.24H (FP) PO SCH (12:00)
[2021-03-04] MEDS: LIDOCAINE PATCH REMOVAL MC SCH (21:36)
[2021-03-04] MEDS: ATORVASTATIN CA 20 MG TABLET (FP) PO SCH (21:37)
[2021-03-05] MEDS ORDERED: LIDOCAINE 5% TOPICAL PATCH TP ONE (05:34)
[2021-03-05] MEDS: HEPARIN NA (PORCINE) 5,000 UNITS/ML 1ML VIAL SQ SCH ×3 (06:22→22:39)
[2021-03-05] MEDS: PANTOPRAZOLE 40 MG TABLET PO SCH (06:23)
[2021-03-05 08:53] LABS: CREATININE 1.8 mg/dL (0.55-1.3)
[2021-03-05 09:26] LABS: BLOOD UREA NITROGEN 32.7 mg/dL (7-18); CALCIUM 9.4 mg/dL (8.5-10.1)
[2021-03-05] MEDS: metoPROLOL SUCCINATE 25 MG TAB.SR.24H (FP) PO SCH (11:05)
[2021-03-05] MEDS: cycloSPORINE (SANDIMMUNE) 25 MG CAPSULE PO SCH ×2 (11:06→22:39)
[2021-03-05] MEDS: DOCUSATE SODIUM 100 MG CAPSULE (FP) PO SCH ×2 (11:06→22:39)
[2021-03-05] MEDS: BUDESONIDE/FORMETEROL FUMARATE 160/4.5 mcg INHALER IH SCH ×2 (11:06→22:40)
[2021-03-05] MEDS: LIDOCAINE 5% TOPICAL PATCH TP SCH (11:06)
[2021-03-05] MEDS: ATORVASTATIN CA 20 MG TABLET (FP) PO SCH (22:39)
[2021-03-05] MEDS: LIDOCAINE PATCH REMOVAL MC SCH ×2 (22:39→22:40)
[2021-03-05] MEDS ORDERED: MELATONIN 5 MG TABLETS PO ONE (23:44)
[2021-03-06] MEDS ORDERED: traMADol HCL 50 MG TABLET PO ONE (01:15)
[2021-03-06] MEDS: HEPARIN NA (PORCINE) 5,000 UNITS/ML 1ML VIAL SQ SCH ×3 (07:13→21:42)
[2021-03-06] MEDS: PANTOPRAZOLE 40 MG TABLET PO SCH (07:14)
[2021-03-06 08:22] LABS: BASO % 0.8 % (0-2.0); EOS % 3.7 % (0-4.5); HEMATOCRIT 34.8 % (35.4-49); LYMPH % 22.3 % (8-40); MCH 31.5 pg (25.7-33.7); MCHC 34.5 g/dl (32.0-35.9); MEAN CELL VOLUME 91.5 fl (80-96); MEAN PLT VOLUME 9.6 fl (7.5-11.1); MONO % 8.5 % (3.8-10.2); NEUT % 64.7 % (42.8-82.8); PLATELET COUNT 150 K/MM3 (134-434); RDW 13.3 % (11.9-15.9); WHITE BLOOD COUNT 5.2 K/mm3 (4.0-10.0)
[2021-03-06 08:54] LABS: BLOOD UREA NITROGEN 25.3 mg/dL (7-18); CALCIUM 8.9 mg/dL (8.5-10.1)
[2021-03-06 08:55] LABS: MAGNESIUM 1.9 mg/dL (1.8-2.4)
[2021-03-06 08:57] LABS: CREATININE 1.7 mg/dL (0.55-1.3); PHOSPHOROUS 2.8 mg/dL (2.5-4.9)
[2021-03-06] MEDS ORDERED: PT OWN MED DRAWER 7, Y5N ONE (09:27)
[2021-03-06] MEDS: LIDOCAINE 5% TOPICAL PATCH TP SCH (11:08)
[2021-03-06] MEDS: DOCUSATE SODIUM 100 MG CAPSULE (FP) PO SCH ×2 (11:08→21:42)
[2021-03-06] MEDS: BUDESONIDE/FORMETEROL FUMARATE 160/4.5 mcg INHALER IH SCH ×2 (11:09→21:43)
[2021-03-06] MEDS: cycloSPORINE (SANDIMMUNE) 25 MG CAPSULE PO SCH ×2 (11:09→21:43)
[2021-03-06] MEDS: metoPROLOL SUCCINATE 25 MG TAB.SR.24H (FP) PO SCH (11:10)
[2021-03-06] MEDS: LIDOCAINE PATCH REMOVAL MC SCH ×3 (21:42→22:00)
[2021-03-06] MEDS: ATORVASTATIN CA 20 MG TABLET (FP) PO SCH (21:43)
[2021-03-07] MEDS: PANTOPRAZOLE 40 MG TABLET PO SCH (06:28)
[2021-03-07] MEDS: HEPARIN NA (PORCINE) 5,000 UNITS/ML 1ML VIAL SQ SCH (06:28)
[2021-03-07] MEDS ORDERED: TAMSULOSIN HCL 0.4 MG CAP PO SCH (08:30)
[2021-03-07 09:37] VITALS: BP 124/70; PULSE 60; TEMP 98
[2021-03-07] MEDS: BUDESONIDE/FORMETEROL FUMARATE 160/4.5 mcg INHALER IH SCH (10:28)
[2021-03-07] MEDS: metoPROLOL SUCCINATE 25 MG TAB.SR.24H (FP) PO SCH (10:28)
[2021-03-07] MEDS: DOCUSATE SODIUM 100 MG CAPSULE (FP) PO SCH (10:28)
[2021-03-07] MEDS: LIDOCAINE 5% TOPICAL PATCH TP SCH (10:28)
[2021-03-07] MEDS: cycloSPORINE (SANDIMMUNE) 25 MG CAPSULE PO SCH (10:29)
[2021-03-07] MEDS ORDERED: METHADONE HCL 10 MG TABLET (FOR DETOX USE ONLY) PO ONE (10:30)
[2021-03-07] MEDS ORDERED: METHADONE HCL 5 MG TABLET PO ONE (10:30)
== END 2021-03-07 11:35 | disposition home or self-care (01) ==
LOC: JER 00:55 → INTOOBSV 02:46 → JERBED 02:46 → J6WEST-2 17:35 → J4W 03-06 01:12
PROVIDERS: ADMIT Hospitalist; ATTEND Internal Medicine
PROC: 3E0337Z Introduction of Electrolytic and Water Balance Substance into Peripheral Vein, Percutaneous Approach (ICD-10-PCS; principal; 2021-03-04)
PROC: 3E023GC Introduction of Other Therapeutic Substance into Muscle, Percutaneous Approach (ICD-10-PCS; 2021-03-04)
PROC: 3E033GC Introduction of Other Therapeutic Substance into Peripheral Vein, Percutaneous Approach (ICD-10-PCS; 2021-03-04)
DX: I25.10 Atherosclerotic heart disease of native coronary artery without angina pectoris (principal); I13.0 Hypertensive heart and chronic kidney disease with heart failure and stage 1 through stage 4 chronic kidney disease, or unspecified chronic kidney disease; Z94.4 Liver transplant status; B19.20 Unspecified viral hepatitis C without hepatic coma; K70.30 Alcoholic cirrhosis of liver without ascites; E66.9 Obesity, unspecified; Z68.31 Body mass index [BMI] 31.0-31.9, adult; Z95.1 Presence of aortocoronary bypass graft; Z91.09 Other allergy status, other than to drugs and biological substances; E78.5 Hyperlipidemia, unspecified; I50.9 Heart failure, unspecified; N18.9 Chronic kidney disease, unspecified; U07.1 COVID-19; Z29.9 Encounter for prophylactic measures, unspecified; F12.10 Cannabis abuse, uncomplicated; R73.03 Prediabetes
CPT/HCPCS: 36415; 71046-TC-FY; 76775-TC; 80048; 80053; 80061; 81003; 82550; 82553; 82728; 83036; 83615; 83721; 83735; 83880; 84100; 84436; 84443; 84484; 85025; 85379; 85730; 86140; 86769; 93005; 93010; 96361; 96372; 96374; 96375; 99285-25; C9803; G0378; J1644; U0003; U0005

== ENCOUNTER 2022-04-05 11:01 | Day surgery (SDC) | payer MEDICARE, OTHER ==
[2022-04-04 15:51] VITALS: BMI 31.3
[2022-04-05] MEDS ORDERED: PROPOFOL 20 ML ONE (12:55)
[2022-04-05] MEDS ORDERED: FENTANYL CITRATE/PF 50 MCG/ML VIAL ONE ×2 (12:55)
[2022-04-05] MEDS ORDERED: LIDOCAINE HCL/PF 2% SDV 5ML VIAL ONE (12:55)
[2022-04-05] MEDS ORDERED: MIDAZOLAM HCL 2 MG/2 ML SINGLE DOSE VIAL ONE (12:55)
[2022-04-05] MEDS ORDERED: LIDOCAINE HCL 1%, 10 MG/ML (20ML VIAL) ONE (13:21)
[2022-04-05] MEDS ORDERED: BUPIVACAINE HCL/PF 0.5% (5MG/ML) 10 ML VIAL ONE (13:21)
[2022-04-05] MEDS ORDERED: ceFAZolin SODIUM 1 GM VIAL IVPB ONE (13:22)
[2022-04-05] MEDS ORDERED: ceFAZolin SODIUM 1 GM VIAL ONE (13:27)
[2022-04-05] MEDS ORDERED: BUPIVACAINE HCL/PF 0.5% (5MG/ML) 10 ML VIAL IJ ONE (13:36)
[2022-04-05] MEDS ORDERED: LIDOCAINE HCL 1%, 10 MG/ML (20ML VIAL) INF ONE (13:36)
[2022-04-05] MEDS ORDERED: oxyCODONE HCL 5 MG TABLET PO PRN ×2 (14:44)
[2022-04-05] MEDS ORDERED: ONDANSETRON 4 MG/2 ML VIAL IVPUSH PRN (14:44)
[2022-04-05] MEDS ORDERED: LACTATED RINGERS SOLUTION 1,000 ML IV SCH (14:45)
[2022-04-05 15:01] VITALS: BP 142/69; PULSE 54; TEMP 98.2
== END 2022-04-05 14:50 | disposition home or self-care (01) ==
LOC: JASU-SURG 11:01
PROVIDERS: ATTEND Surgery
PROC: 0HB8XZX Excision of Buttock Skin, External Approach, Diagnostic (ICD-10-PCS; principal; 2022-04-05 13:00)
DX: C44.529 Squamous cell carcinoma of skin of other part of trunk (principal)
CPT/HCPCS: 82962; 88305-TC

== ENCOUNTER 2022-11-25 11:32 | Emergency (ER) | payer MEDICARE, OTHER ==
[2022-11-25 11:42] VITALS: BP 132/84; RESP 20; TEMP 98.6; BMI 30.5
[2022-11-25] MEDS ORDERED: ACETAMINOPHEN 500 MG TABLET (FP) PO ONE (11:47)
[2022-11-25] MEDS ORDERED: IBUPROFEN 600 MG TABLET (FP) PO ONE ×2 (11:47→12:14)
[2022-11-25] MEDS ORDERED: ACETAMINOPHEN 500 MG TABLET (FP) ONE (12:14)
[2022-11-25 13:03] LABS: BASO % 0.8 % (0-2.0); EOS % 1.5 % (0-4.5); HEMATOCRIT 39.3 % (35.4-49); HEMOGLOBIN 13.3 GM/dL (11.7-16.9); LYMPH % 15.3 % (8-40); MCH 30.5 pg (25.7-33.7); MEAN CELL VOLUME 89.7 fl (80-96); MEAN PLT VOLUME 9.4 fl (7.5-11.1); MONO % 7.5 % (3.8-10.2); NEUT % 74.9 % (42.8-82.8); PLATELET COUNT 157 10^3/uL (134-434); RBC 4.38 M/mm3 (4.00-5.60); RDW 13.9 % (11.9-15.9); WHITE BLOOD COUNT 5.7 K/mm3 (4.0-10.0)
[2022-11-25 13:30] LABS: BLOOD UREA NITROGEN 27.9 mg/dL (7-18)
[2022-11-25 13:33] LABS: CREATININE 1.7 mg/dL (0.55-1.3)
[2022-11-25 13:34] LABS: BILIRUBIN,TOTAL 0.7 mg/dL (0.2-1); TOT PROT 7.2 g/dl (6.4-8.2)
[2022-11-25 13:48] LABS: CALCIUM 9.3 mg/dL (8.5-10.1)
[2022-11-25 15:55] LABS: URINE APPEARANCE CLEAR; URINE BILIRUBIN NEGATIVE (NEGATIVE); URINE COLOR YELLOW; URINE GLUCOSE (UA) 2+ (NEGATIVE); URINE KETONE NEGATIVE (NEGATIVE); URINE LEUK ESTERASE NEGATIVE (NEGATIVE); URINE NITRITE NEGATIVE (NEGATIVE); URINE PROTEIN NEGATIVE (NEGATIVE); URINE UROBILINOGEN 0.2 mg/dL (0.2-1.0)
[2022-11-25 18:30] VITALS: PULSE 80
== END 2022-11-25 18:30 | disposition home or self-care (01) ==
LOC: JERFT 11:32
DX: S29.011A Strain of muscle and tendon of front wall of thorax, initial encounter (principal); R10.9 Unspecified abdominal pain; X50.9XXA Other and unspecified overexertion or strenuous movements or postures, initial encounter
CPT/HCPCS: 36415; 71046-TC-FY; 74176-TC; 80053; 80307; 81003; 85025; 87086; 93005; 93010; 99285-25

== ENCOUNTER 2023-04-02 11:43 | Inpatient (IN) | payer MEDICARE, OTHER ==
[2023-04-02 11:52] VITALS: BMI 30.5
[2023-04-02] MEDS ORDERED: SODIUM CHLORIDE 0.9% 500 ML INFUS.BAG IV ONE (12:10)
[2023-04-02 12:43] LABS: BASO % 0.7 % (0-2.0); EOS % 2.9 % (0-4.5); HEMATOCRIT 40.9 % (35.4-49); HEMOGLOBIN 14.4 GM/dL (11.7-16.9); LYMPH % 14.3 % (8-40); MCH 30.9 pg (25.7-33.7); MCHC 35.2 g/dl (32.0-35.9); MEAN CELL VOLUME 87.8 fl (80-96); MONO % 7.3 % (3.8-10.2); NEUT % 74.8 % (42.8-82.8); PLATELET COUNT 142 10^3/uL (134-434); RBC 4.66 M/mm3 (4.00-5.60); RDW 13.5 % (11.9-15.9); WHITE BLOOD COUNT 5.7 K/mm3 (4.0-10.0)
[2023-04-02 13:08] LABS: CALCIUM 9.2 mg/dL (8.5-10.1); POTASSIUM 4.6 mmol/L (3.5-5.1)
[2023-04-02 13:10] LABS: ALBUMIN 3.8 g/dl (3.4-5.0); BLOOD UREA NITROGEN 22.7 mg/dL (7-18); MAGNESIUM 1.7 mg/dL (1.8-2.4)
[2023-04-02 13:12] LABS: CREATININE 1.9 mg/dL (0.55-1.3)
[2023-04-02 13:15] LABS: BILIRUBIN,TOTAL 0.8 mg/dL (0.2-1); TOT PROT 7.3 g/dl (6.4-8.2)
[2023-04-02 14:04] LABS: ALBUMIN 3.7 g/dl (3.4-5.0); BLOOD UREA NITROGEN 21.8 mg/dL (7-18)
[2023-04-02 14:07] LABS: CREATININE 1.7 mg/dL (0.55-1.3)
[2023-04-02 14:10] LABS: BILIRUBIN,TOTAL 0.8 mg/dL (0.2-1)
[2023-04-02 14:50] LABS: MAGNESIUM 1.8 mg/dL (1.8-2.4)
[2023-04-02 15:27] LABS: URINE APPEARANCE CLEAR; URINE BILIRUBIN NEGATIVE (NEGATIVE); URINE COLOR YELLOW; URINE GLUCOSE (UA) 2+ (NEGATIVE); URINE KETONE NEGATIVE (NEGATIVE); URINE LEUK ESTERASE NEGATIVE (NEGATIVE); URINE NITRITE NEGATIVE (NEGATIVE); URINE PROTEIN NEGATIVE (NEGATIVE); URINE UROBILINOGEN 0.2 mg/dL (0.2-1.0)
[2023-04-02] MEDS: LACTATED RINGERS SOLUTION 1,000 ML IV SCH (18:29)
[2023-04-02] MEDS ORDERED: ALBUTEROL SO4 HFA INHALER IH PRN (18:39)
[2023-04-02] MEDS: HEPARIN NA (PORCINE) 5,000 UNITS/ML 1ML VIAL SQ SCH (22:57)
[2023-04-02] MEDS: ATORVASTATIN CA 20 MG TABLET (FP) PO SCH (22:57)
[2023-04-02] MEDS: cycloSPORINE 25 MG CAPSULE PO SCH (23:45)
[2023-04-02] MEDS: BUDESONIDE/FORMETEROL FUMARATE 160/4.5 mcg INHALER IH SCH (23:45)
[2023-04-03] MEDS: LACTATED RINGERS SOLUTION 1,000 ML IV SCH ×3 (05:17→19:08)
[2023-04-03] MEDS: HEPARIN NA (PORCINE) 5,000 UNITS/ML 1ML VIAL SQ SCH ×3 (05:18→22:38)
[2023-04-03 08:31] VITALS: RESP 18
[2023-04-03 09:34] LABS: BASO % 0.9 % (0-2.0); HEMATOCRIT 39.8 % (35.4-49); HEMOGLOBIN 14.1 GM/dL (11.7-16.9); LYMPH % 19.4 % (8-40); MCH 30.8 pg (25.7-33.7); MCHC 35.4 g/dl (32.0-35.9); MONO % 6.2 % (3.8-10.2); NEUT % 70.5 % (42.8-82.8); PLATELET COUNT 141 10^3/uL (134-434); RBC 4.58 M/mm3 (4.00-5.60); RDW 13.9 % (11.9-15.9); WHITE BLOOD COUNT 5.2 K/mm3 (4.0-10.0)
[2023-04-03] MEDS: FUROSEMIDE 40 MG TABLET (FP) PO SCH (09:57)
[2023-04-03] MEDS: TAMSULOSIN HCL 0.4 MG CAP PO SCH (09:57)
[2023-04-03] MEDS: cycloSPORINE 25 MG CAPSULE PO SCH (09:58)
[2023-04-03] MEDS: metoPROLOL SUCCINATE 25 MG TAB.SR.24H (FP) PO SCH (09:58)
[2023-04-03] MEDS: BUDESONIDE/FORMETEROL FUMARATE 160/4.5 mcg INHALER IH SCH ×2 (09:59→22:39)
[2023-04-03] MEDS ORDERED: PANTOPRAZOLE 40 MG TABLET PO SCH (10:00)
[2023-04-03 10:04] LABS: CALCIUM 8.8 mg/dL (8.5-10.1)
[2023-04-03 10:06] LABS: ALBUMIN 3.5 g/dl (3.4-5.0); BLOOD UREA NITROGEN 18.9 mg/dL (7-18); MAGNESIUM 1.7 mg/dL (1.8-2.4)
[2023-04-03 10:08] LABS: BILIRUBIN,TOTAL 1.2 mg/dL (0.2-1); CREATININE 1.5 mg/dL (0.55-1.3); PHOSPHOROUS 2.6 mg/dL (2.5-4.9)
[2023-04-03 10:10] LABS: TOT PROT 6.5 g/dl (6.4-8.2)
[2023-04-03] MEDS ORDERED: ACETAMINOPHEN 325 MG TABLET (FP) ONE (16:26)
[2023-04-03] MEDS ORDERED: ACETAMINOPHEN 325 MG TABLET (FP) PO ONE (17:00)
[2023-04-03] MEDS: ATORVASTATIN CA 20 MG TABLET (FP) PO SCH (22:38)
[2023-04-03] MEDS ORDERED: cycloSPORINE (SANDIMMUNE) 25 MG CAPSULE PO SCH (23:00)
[2023-04-04] MEDS: cycloSPORINE (SANDIMMUNE) 25 MG CAPSULE PO SCH ×2 (01:39→10:05)
[2023-04-04] MEDS: LACTATED RINGERS SOLUTION 1,000 ML IV SCH (01:41)
[2023-04-04] MEDS: HEPARIN NA (PORCINE) 5,000 UNITS/ML 1ML VIAL SQ SCH ×2 (05:46→13:22)
[2023-04-04] MEDS: TAMSULOSIN HCL 0.4 MG CAP PO SCH (08:33)
[2023-04-04 08:55] LABS: POTASSIUM 3.9 mmol/L (3.5-5.1)
[2023-04-04 09:04] LABS: ALBUMIN 3.8 g/dl (3.4-5.0); BLOOD UREA NITROGEN 20.1 mg/dL (7-18); CALCIUM 9.5 mg/dL (8.5-10.1)
[2023-04-04 09:07] LABS: CREATININE 1.5 mg/dL (0.55-1.3)
[2023-04-04 09:09] LABS: BILIRUBIN,TOTAL 1.2 mg/dL (0.2-1); TOT PROT 7.2 g/dl (6.4-8.2)
[2023-04-04] MEDS: FUROSEMIDE 40 MG TABLET (FP) PO SCH (10:05)
[2023-04-04] MEDS: BUDESONIDE/FORMETEROL FUMARATE 160/4.5 mcg INHALER IH SCH (10:05)
[2023-04-04] MEDS: metoPROLOL SUCCINATE 25 MG TAB.SR.24H (FP) PO SCH (10:06)
[2023-04-04 13:36] VITALS: BP 129/78; PULSE 63; TEMP 98.1
[2023-04-05 10:10] LABS: CYCLOSPORINE TROUGH 336 ng/mL (100-400)
== END 2023-04-04 15:55 | disposition home or self-care (01) | DRG 392 ==
LOC: JER 11:43 → JERBED 16:57 → J7W 21:11
PROVIDERS: ADMIT Internal Medicine; ATTEND Internal Medicine
DX: K52.9 Noninfective gastroenteritis and colitis, unspecified (principal); Z94.4 Liver transplant status; D84.9 Immunodeficiency, unspecified; E11.22 Type 2 diabetes mellitus with diabetic chronic kidney disease; N18.9 Chronic kidney disease, unspecified; I12.9 Hypertensive chronic kidney disease with stage 1 through stage 4 chronic kidney disease, or unspecified chronic kidney disease; E78.5 Hyperlipidemia, unspecified; I25.10 Atherosclerotic heart disease of native coronary artery without angina pectoris; F17.210 Nicotine dependence, cigarettes, uncomplicated
CPT/HCPCS: 0241U-QW; 36415; 74176-TC; 76775-TC; 80053; 80158; 81003; 83605; 83735; 84100; 84443; 85025; 86140; 87045; 87046; 87086; 93005; 93010; 99285-25; J1644; J7515

== ENCOUNTER 2023-07-15 16:22 | Observation (INO) | payer MEDICARE, OTHER ==
[2023-07-15] MEDS ORDERED: ASPIRIN 81 MG CHEWABLE TABLETS PO ONE (16:56)
[2023-07-15] MEDS ORDERED: ASPIRIN 81 MG CHEWABLE TABLETS ONE (17:28)
[2023-07-15 17:34] LABS: BASO % 1.2 % (0-2.0); EOS % 3.4 % (0-4.5); HEMATOCRIT 37.4 % (35.4-49); HEMOGLOBIN 12.8 GM/dL (11.7-16.9); MCH 30.7 pg (25.7-33.7); MCHC 34.2 g/dl (32.0-35.9); MEAN CELL VOLUME 89.6 fl (80-96); MEAN PLT VOLUME 7.9 fl (7.5-11.1); MONO % 9.5 % (3.8-10.2); NEUT % 69.9 % (42.8-82.8); PLATELET COUNT 154 10^3/uL (134-434); RBC 4.18 M/mm3 (4.00-5.60); RDW 13.6 % (11.9-15.9); WHITE BLOOD COUNT 4.1 K/mm3 (4.0-10.0)
[2023-07-15 17:53] LABS: POTASSIUM 4.9 mmol/L (3.5-5.1)
[2023-07-15 17:55] LABS: BLOOD UREA NITROGEN 22.7 mg/dL (7-18); CALCIUM 8.4 mg/dL (8.5-10.1)
[2023-07-15 17:56] LABS: ALBUMIN 3.7 g/dl (3.4-5.0)
[2023-07-15 17:59] LABS: CREATININE 1.8 mg/dL (0.55-1.3)
[2023-07-15 18:00] LABS: BILIRUBIN,TOTAL 0.7 mg/dL (0.2-1); TOT PROT 6.7 g/dl (6.4-8.2)
[2023-07-15 18:15] LABS: INR 1.17 (0.83-1.09); PROTHROMBIN TIME (PATIENT) 13.5 SEC (9.7-13.0)
[2023-07-16 00:57] VITALS: RESP 18
[2023-07-16] MEDS: cycloSPORINE (SANDIMMUNE) 25 MG CAPSULE PO SCH ×2 (02:56→11:01)
[2023-07-16 04:45] VITALS: BMI 30.2
[2023-07-16] MEDS ORDERED: ALBUTEROL SO4 0.083% IH SOL 2.5 MG/3 ML VIAL.NEB. NEB PRN (09:26)
[2023-07-16] MEDS ORDERED: FUROSEMIDE 40 MG TABLET (FP) PO SCH (10:00)
[2023-07-16] MEDS ORDERED: PATIENT'S OWN MEDICATION (NON-FORMULARY) (Dapagliflozin Propanediol 10 MG Tablet) PO SCH (10:00)
[2023-07-16] MEDS ORDERED: PANTOPRAZOLE 40 MG TABLET PO SCH (10:00)
[2023-07-16] MEDS ORDERED: PATIENT'S OWN MEDICATION (NON-FORMULARY) (Budesonide/Glycopyr/Formoterol [Breztri Aerosphe IH SCH (10:00)
[2023-07-16] MEDS ORDERED: MULTIVITAMINS (DAILY MVI) TABLET (FP) PO SCH (10:00)
[2023-07-16] MEDS ORDERED: metoPROLOL SUCCINATE 25 MG TAB.SR.24H (FP) PO SCH ×2 (10:00→10:45)
[2023-07-16] MEDS ORDERED: ASPIRIN 81 MG CHEWABLE TABLETS PO SCH (10:00)
[2023-07-16] MEDS ORDERED: TAMSULOSIN HCL 0.4 MG CAP PO SCH (10:00)
[2023-07-16] MEDS ORDERED: BUDESONIDE 0.25 MG/2ML INH SUSP VIAL NEB SCH (10:00)
[2023-07-16] MEDS ORDERED: INSULIN SLIDING SCALE (NOVOLOG) 1 VIAL SQ SCH (11:00)
[2023-07-16] MEDS ORDERED: SODIUM CHLORIDE 0.45% 1,000 ML IV SCH (12:45)
[2023-07-16 14:25] VITALS: BP 126/73; PULSE 61; TEMP 98.5
[2023-07-16] MEDS ORDERED: MECLIZINE HCL 12.5 MG TABLET PO SCH (22:00)
[2023-07-16] MEDS ORDERED: ATORVASTATIN CA 20 MG TABLET (FP) PO SCH (22:00)
== END 2023-07-16 16:40 | disposition home or self-care (01) ==
LOC: JER 16:22 → JERBED 18:38 → J4S 07-16 04:22
PROVIDERS: ADMIT Internal Medicine; ATTEND Family Medicine
PROC: 3E0F7GC Introduction of Other Therapeutic Substance into Respiratory Tract, Via Natural or Artificial Opening (ICD-10-PCS; principal; 2023-07-15)
DX: R07.89 Other chest pain (principal); I11.9 Hypertensive heart disease without heart failure; K70.30 Alcoholic cirrhosis of liver without ascites; I25.10 Atherosclerotic heart disease of native coronary artery without angina pectoris; E78.5 Hyperlipidemia, unspecified; K59.00 Constipation, unspecified; N28.9 Disorder of kidney and ureter, unspecified; Z94.4 Liver transplant status; Z95.1 Presence of aortocoronary bypass graft; Z86.19 Personal history of other infectious and parasitic diseases; F10.21 Alcohol dependence, in remission; Z91.041 Radiographic dye allergy status; R20.8 Other disturbances of skin sensation; Z87.891 Personal history of nicotine dependence
CPT/HCPCS: 36415; 71045-TC-FY; 80053; 82550; 82962; 83735; 84484; 85025; 85610; 85730; 93005; 93010; 94640; 99285-25; G0378